=== PATIENT | female | born 1995 | race Caucasian/White ===

== ENCOUNTER 2016-07-12 22:26 | Emergency (ER) | payer OTHER ==
[~2016-07-12 22:26] MED LIST: MOTR200T44 PO; PRENTAB55 PO
[2016-07-13] MEDS ORDERED: traMADol 50 MG TAB As Ordered ONE (00:22)
[2016-07-13] MEDS ORDERED: metroNIDAZOLE (FLAGYL) 250 MG TAB As Ordered ONE (00:23)
[2016-07-13] MEDS ORDERED: BACTRIM 160MG/800MG DS TAB As Ordered ONE (00:23)
--- NOTE | 2016-07-13 00:33 | EDDOCDS ---
Physician Documentation [facility] Name: Mahsa Aldridge Age: 21 yrs Sex: Female : 1995 Arrival Date: 07/12/2016 Time: 22:26 Bed I2 / M2 Private MD: Kiera Ma M. Disposition: 07/13/16 00:22 Discharged to Home/Self Care. Impression: Unspecified open wound of left forearm - cat bite. - Condition is Stable. - Discharge Instructions: Animal Bite. - Prescriptions for Naprosyn 500 mg Oral Tablet - take 1 tablet by ORAL route 2 times per day take with food; 30 tablet. Metronidazole 500 mg Oral Tablet - take 1 tablet by ORAL route every 8 hours for 7 days; 21 tablet. Bactrim DS 800- 160 mg Oral Tablet - take 1 tablet by ORAL route every 12 hours for 7 days; 14 tablet. - Medication Reconciliation, Local Pharmacy Hours form. - Follow up: Emergency Department; When: As needed. Follow up: Kiera Ma; When: 2 - 3 days; Reason: Wound/Symptom Recheck, Recheck today's complaints, Worsening of conditions, Continuance of care. - Problem is new. - Symptoms are unchanged. Historical: - Allergies: Augmentin (Rash); - Home Meds: 1. thyroid medication has not been taking - PMHx: compression fracture T7; Hypothyroidism; vit d deficiency; - PSHx: none; - Immunization history:: Last tetanus immunization: unknown. - Family history: Not pertinent. - Social history: Smoking status: Patient states was never smoker of tobacco. No barriers to communication noted, The patient speaks fluent Norwegian. - : The pt / caregiver states he / she is not on anticoagulants. Home medication list is obtained from the patient. - Exposure Risk Screening:: None identified. 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 1 in. (154.94 cm) (R); Pain 9/10; 07/13 00:30 BP 149 / 71; Pulse 91; Resp 16; Temp 98.1; Pulse Ox 100% on R/A; ld5 07/12 22:28 Body Mass Index 38.36 (92.08 kg, 154.94 cm) rs6 MDM: 00:19 traMADol 50 mg PO once ordered. cc10 00:19 Trimethoprim-Sulfamethoxazole 160 mg-800 mg (DS) 1 tabs PO once ordered. cc10 00:19 metroNIDAZOLE 500 mg PO once ordered. cc10 00:31 Financial registration complete. [facility] Administered Medications: 00:29 Drug: traMADol 50 mg [tramadol 50 mg tablet (1 tabs)] Route: PO; ld5 00:30 Follow up: Response: Confirmed pt not driving. ld5 00:29 Drug: Trimethoprim-Sulfamethoxazole 1 tabs [sulfamethoxazole 800 mg-trimethoprim 160 mg ld5 tablet (1 tabs)] Route: PO; 00:29 Drug: metroNIDAZOLE 500 mg [metronidazole 250 mg tablet (2 tabs)] Route: PO; ld5 Signatures: Zaynab Jacinto RN RN rs3 Shruthi Blair RN RN ld5 Jl Toledo, PA-C PA-C cc10 Thalia Barraza [facility] MTDD
--- NOTE | 2016-07-13 00:33 | EDDOCDS ---
Nurse's Notes [facility] Name: Mahsa Aldridge Age: 21 yrs Sex: Female : 1995 Arrival Date: 07/12/2016 Time: 22:26 Bed I2 / M2 Private MD: Kiera Ma M. Diagnosis: Unspecified open wound of left forearm-cat bite Presentation: 07/12 22:31 Presenting complaint: Patient states: cat bite on L forearm. Adult Sepsis Screening: rs3 The patient does not have new or worsening altered mentation. Patient's respiratory rate is less than 22. Systolic blood pressure is greater than 100. Patient has a qSOFA score of 0- Negative Sepsis Screen. Suicide/Homicide risk assessment- the patient denies having any suicidal and/or homicidal ideations and does not present with any other emotional, behavioral or mental health complaints. Status: Patient is not a guest services attendant or dependent. Transition of care: patient was not received from another setting of care. 22:31 Acuity: YUMIKO Level 4 rs3 22:31 Method Of Arrival: Walkin/Carried/Asstd rs3 Triage Assessment: 22:33 Bite Description: Bite sustained to left arm by a cat, Animal Information: Vaccine rs3 status: is unknown. General: Appears in no apparent distress. Pain: Location: left arm. HIV screening NA for this visit Offered previously. REHAB TECH: 22:33 LMP 07/09/2016 rs3 Historical: - Allergies: Augmentin (Rash); - Home Meds: 1. thyroid medication has not been taking - PMHx: compression fracture T7; Hypothyroidism; vit d deficiency; - PSHx: none; - Immunization history:: Last tetanus immunization: unknown. - Family history: Not pertinent. - Social history: Smoking status: Patient states was never smoker of tobacco. No barriers to communication noted, The patient speaks fluent Persian. - : The pt / caregiver states he / she is not on anticoagulants. Home medication list is obtained from the patient. - Exposure Risk Screening:: None identified. Screenin/03 00:30 Screening information is obtained from the patient. Fall risk: No risks identified. ld5 Assistance ADL's: requires no assistance with activities of daily living. Abuse/DV Screen: The patient / caregiver reports he/she is: not in a situation that causes fear, pain or injury. Nutritional screening: No deficits noted. Advance Directives: There is no active DNR order. home support is adequate. Assessment: 00:30 General: Appears in no apparent distress, Behavior is cooperative. Pain: Location: ld5 dorsal aspect of left forearm. Neurological: Level of Consciousness is awake, alert. Respiratory: Airway is patent Respiratory effort is even, unlabored. Derm: Skin bite to left forearm. Injury Description: The patient reports to have been bitten by a cat on his/her dorsal aspect of left forearm. Vital Signs: 07/12 22:28 BP 154 / 79 RA Sitting (auto/lg); Pulse 96; Resp 16; Temp 98.2(O); Pulse Ox 99% on R/A; rs6 Weight 92.08 kg (R); Height 5 ft. 1 in. (154.94 cm) (R); Pain 9/10; 07/13 00:30 BP 149 / 71; Pulse 91; Resp 16; Temp 98.1; Pulse Ox 100% on R/A; ld5 07/12 22:28 Body Mass Index 38.36 (92.08 kg, 154.94 cm) rs6 Vitals: 07/12 22:28 Log In Time: July 12, 2016 at 22:28. rs6 ED Course: 22:28 Patient visited by Laureen Hayes PCA. rs6 22:28 Kiera Ma is Private Physician. rs6 22:28 Patient moved to Waiting rs6 22:29 Patient visited by Laureen Hayes PCA. rs6 22:30 Patient moved to Pre RCE rs6 22:32 Triage Initiated rs3 02 00:01 Patient moved to I2 / M2 slm 00:08 Jl Toledo PA-C is PHCP. cc10 00:08 Jean Ivy DO is Attending Physician. cc10 00:14 Patient visited by Jl Toledo PA-C. cc10 00:14 Patient visited by Jl Toledo PA-C. cc10 00:22 Kiera Ma is Referral Physician. cc10 00:30 The patient / caregiver is instructed regarding the plan of care and ED course. Patient ld5 has correct armband on for positive identification. 00:30 No IV's were initiated during this patient's visit. No procedures done that require ld5 assistance. 00:32 Patient visited by Shruthi Blair,RN. ld5 Administered Medications: 00:29 Drug: traMADol 50 mg [tramadol 50 mg tablet (1 tabs)] Route: PO; ld5 00:30 Follow up: Response: Confirmed pt not driving. ld5 00:29 Drug: Trimethoprim-Sulfamethoxazole 1 tabs [sulfamethoxazole 800 mg-trimethoprim 160 mg ld5 tablet (1 tabs)] Route: PO; 00:29 Drug: metroNIDAZOLE 500 mg [metronidazole 250 mg tablet (2 tabs)] Route: PO; ld5 Order Results: There are currently no results for this order. Outcome: 00:22 Discharge ordered by Provider. cc10 00:30 Discharge Assessment: Patient awake, alert and oriented x 3. No cognitive and/or ld5 functional deficits noted. Patient verbalized understanding of disposition instructions. patient administered narcotics - yes. Pt provided with safe discharge. The following High Risk Discharge criteria are identified: None. Discharged to home ambulatory, with significant other. Condition: stable. Discharge instructions given to patient, significant other, Instructed on discharge instructions, follow up and referral plans. medication usage, Demonstrated understanding of instructions, medications, Pt was receptive of discharge instructions/ teaching. Prescriptions given X 3. No special radiology studies were completed. Property :Personal belongings accompany Pt. 00:32 Patient left the ED. ld5 Signatures: Zaynab Jacinto,RN RN rs3 Shruthi Blair,RN RN ld5 Candy Zapata,SUSANNA ADDISONN Jl Joy PAMarvC PA-C cc10 Laureen Hayes, JORGE L RN SUPPORT SERVICES rs6 MTDD
--- NOTE | 2016-07-15 01:33 | EDDOCDS ---
Nurse's Notes [facility] Name: Mahsa Aldridge Age: 21 yrs Sex: Female : 1995 Arrival Date: 07/12/2016 Time: 22:26 Bed I2 / M2 Private MD: Kiera Ma M. Diagnosis: Unspecified open wound of left forearm-cat bite Presentation: 07/12 22:31 Presenting complaint: Patient states: cat bite on L forearm. Adult Sepsis Screening: rs3 The patient does not have new or worsening altered mentation. Patient's respiratory rate is less than 22. Systolic blood pressure is greater than 100. Patient has a qSOFA score of 0- Negative Sepsis Screen. Suicide/Homicide risk assessment- the patient denies having any suicidal and/or homicidal ideations and does not present with any other emotional, behavioral or mental health complaints. Status: Patient is not a director learning services or dependent. Transition of care: patient was not received from another setting of care. 22:31 Acuity: YUMIKO Level 4 rs3 22:31 Method Of Arrival: Walkin/Carried/Asstd rs3 Triage Assessment: 22:33 Bite Description: Bite sustained to left arm by a cat, Animal Information: Vaccine rs3 status: is unknown. General: Appears in no apparent distress. Pain: Location: left arm. HIV screening NA for this visit Offered previously. 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 thyroid medication has not been taking - PMHx: compression fracture T7; Hypothyroidism; vit d deficiency; - PSHx: none; - Immunization history:: Last tetanus immunization: unknown. - Family history: Not pertinent. - Social history: Smoking status: Patient states was never smoker of tobacco. No barriers to communication noted, The patient speaks fluent Yi. - : The pt / caregiver states he / she is not on anticoagulants. Home medication list is obtained from the patient. - Exposure Risk Screening:: None identified. Screenin/03 00:30 Screening information is obtained from the patient. Fall risk: No risks identified. ld5 Assistance ADL's: requires no assistance with activities of daily living. Abuse/DV Screen: The patient / caregiver reports he/she is: not in a situation that causes fear, pain or injury. Nutritional screening: No deficits noted. Advance Directives: There is no active DNR order. home support is adequate. Assessment: 00:30 General: Appears in no apparent distress, Behavior is cooperative. Pain: Location: ld5 dorsal aspect of left forearm. Neurological: Level of Consciousness is awake, alert. Respiratory: Airway is patent Respiratory effort is even, unlabored. Derm: Skin bite to left forearm. Injury Description: The patient reports to have been bitten by a cat on his/her dorsal aspect of left forearm. Vital Signs: 07/12 22:28 BP 154 / 79 RA Sitting (auto/lg); Pulse 96; Resp 16; Temp 98.2(O); Pulse Ox 99% on R/A; rs6 Weight 92.08 kg (R); Height 5 ft. 1 in. (154.94 cm) (R); Pain 9/10; 07/13 00:30 BP 149 / 71; Pulse 91; Resp 16; Temp 98.1; Pulse Ox 100% on R/A; ld5 07/12 22:28 Body Mass Index 38.36 (92.08 kg, 154.94 cm) rs6 Vitals: 07/12 22:28 Log In Time: July 12, 2016 at 22:28. rs6 ED Course: 22:28 Patient visited by Laureen Hayes PCA. rs6 22:28 Kiera Ma is Private Physician. rs6 22:28 Patient moved to Waiting rs6 22:29 Patient visited by Laureen Hayes PCA. rs6 22:30 Patient moved to Pre RCE rs6 22:32 Triage Initiated rs3 02 00:01 Patient moved to I2 / M2 slm 00:08 Jl Toledo PA-C is PHCP. cc10 00:08 Jean Ivy DO is Attending Physician. cc10 00:14 Patient visited by Jl Toledo PA-C. cc10 00:14 Patient visited by Jl Toledo PA-C. cc10 00:22 Kiera Ma is Referral Physician. cc10 00:30 The patient / caregiver is instructed regarding the plan of care and ED course. Patient ld5 has correct armband on for positive identification. 00:30 No IV's were initiated during this patient's visit. No procedures done that require ld5 assistance. 00:32 Patient visited by Shruthi Blair RN. ld5 01:37 [facility] Payment Agreement was scanned into [employer] and attached to record. [facility] 11:46 T-Sheet-- Draft Copy was scanned into [employer] and attached to record. gb Administered Medications: 00:29 Drug: traMADol 50 mg [tramadol 50 mg tablet (1 tabs)] Route: PO; ld5 00:30 Follow up: Response: Confirmed pt not driving. ld5 00:29 Drug: Trimethoprim-Sulfamethoxazole 1 tabs [sulfamethoxazole 800 mg-trimethoprim 160 mg ld5 tablet (1 tabs)] Route: PO; 00:29 Drug: metroNIDAZOLE 500 mg [metronidazole 250 mg tablet (2 tabs)] Route: PO; ld5 Order Results: There are currently no results for this order. Outcome: 00:22 Discharge ordered by Provider. cc10 00:30 Discharge Assessment: Patient awake, alert and oriented x 3. No cognitive and/or ld5 functional deficits noted. Patient verbalized understanding of disposition instructions. patient administered narcotics - yes. Pt provided with safe discharge. The following High Risk Discharge criteria are identified: None. Discharged to home ambulatory, with significant other. Condition: stable. Discharge instructions given to patient, significant other, Instructed on discharge instructions, follow up and referral plans. medication usage, Demonstrated understanding of instructions, medications, Pt was receptive of discharge instructions/ teaching. Prescriptions given X 3. No special radiology studies were completed. Property :Personal belongings accompany Pt. 00:32 Patient left the ED. ld5 Signatures: Jenna Wall, Reg Reg Zaynab Jacinto RN RN rs3 Shruthi Blair,RN RN ld5 Candy Zapata LPN LPN slm [place], Colin, PA-C PA-C cc10 Thalia Barraza Rebecca, PCA [facility] rs6 Chart Complete MTDD
--- NOTE | 2016-07-15 01:33 | EDDOCDS ---
Physician Documentation [facility] Name: Mahsa Aldridge Age: 21 yrs Sex: Female : 1995 Arrival Date: 07/12/2016 Time: 22:26 Bed I2 / M2 Private MD: Kiera Ma M. Disposition: 07/13/16 00:22 Discharged to Home/Self Care. Impression: Unspecified open wound of left forearm - cat bite. - Condition is Stable. - Discharge Instructions: Animal Bite. - Prescriptions for Naprosyn 500 mg Oral Tablet - take 1 tablet by ORAL route 2 times per day take with food; 30 tablet. Metronidazole 500 mg Oral Tablet - take 1 tablet by ORAL route every 8 hours for 7 days; 21 tablet. Bactrim DS 800- 160 mg Oral Tablet - take 1 tablet by ORAL route every 12 hours for 7 days; 14 tablet. - Medication Reconciliation, Local Pharmacy Hours form. - Follow up: Emergency Department; When: As needed. Follow up: Kiera Ma; When: 2 - 3 days; Reason: Wound/Symptom Recheck, Recheck today's complaints, Worsening of conditions, Continuance of care. - Problem is new. - Symptoms are unchanged. Historical: - Allergies: Augmentin (Rash); - Home Meds: 1. thyroid medication has not been taking - PMHx: compression fracture T7; Hypothyroidism; vit d deficiency; - PSHx: none; - Immunization history:: Last tetanus immunization: unknown. - Family history: Not pertinent. - Social history: Smoking status: Patient states was never smoker of tobacco. No barriers to communication noted, The patient speaks fluent Yemeni. - : The pt / caregiver states he / she is not on anticoagulants. Home medication list is obtained from the patient. - Exposure Risk Screening:: None identified. 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 1 in. (154.94 cm) (R); Pain 9/10; 07/13 00:30 BP 149 / 71; Pulse 91; Resp 16; Temp 98.1; Pulse Ox 100% on R/A; ld5 07/12 22:28 Body Mass Index 38.36 (92.08 kg, 154.94 cm) rs6 MDM: 00:19 traMADol 50 mg PO once ordered. cc10 00:19 Trimethoprim-Sulfamethoxazole 160 mg-800 mg (DS) 1 tabs PO once ordered. cc10 00:19 metroNIDAZOLE 500 mg PO once ordered. cc10 00:31 Financial registration complete. [facility] 01:37 [facility] Payment Agreement was scanned into [employer] and attached to record. [facility] 11:46 T-Sheet-- Draft Copy was scanned into [employer] and attached to record. gb Administered Medications: 00:29 Drug: traMADol 50 mg [tramadol 50 mg tablet (1 tabs)] Route: PO; ld5 00:30 Follow up: Response: Confirmed pt not driving. ld5 00:29 Drug: Trimethoprim-Sulfamethoxazole 1 tabs [sulfamethoxazole 800 mg-trimethoprim 160 mg ld5 tablet (1 tabs)] Route: PO; 00:29 Drug: metroNIDAZOLE 500 mg [metronidazole 250 mg tablet (2 tabs)] Route: PO; ld5 Signatures: Jenna Wall, Reg Reg gb Zaynab JacintoRN RN rs3 Shruthi Blair RN RN ld5 Jl Toledo PA-C PA-C cc10 Thalia Barraza [facility] The chart was reviewed and I authenticate all verbal orders and agree with the evaluation and treatment provided.Attachments: 01:37 [facility] Payment Agreement [facility] 11:46 T-Sheet-- Draft Copy gb Chart Complete MTDD
--- NOTE | 2016-07-15 01:33 | EDDOCDS ---
Physician Documentation [facility] Name: Mahsa Aldridge Age: 21 yrs Sex: Female : 1995 Arrival Date: 07/12/2016 Time: 22:26 Bed I2 / M2 Private MD: Kiera Ma M. Disposition: 07/13/16 00:22 Discharged to Home/Self Care. Impression: Unspecified open wound of left forearm - cat bite. - Condition is Stable. - Discharge Instructions: Animal Bite. - Prescriptions for Naprosyn 500 mg Oral Tablet - take 1 tablet by ORAL route 2 times per day take with food; 30 tablet. Metronidazole 500 mg Oral Tablet - take 1 tablet by ORAL route every 8 hours for 7 days; 21 tablet. Bactrim DS 800- 160 mg Oral Tablet - take 1 tablet by ORAL route every 12 hours for 7 days; 14 tablet. - Medication Reconciliation, Local Pharmacy Hours form. - Follow up: Emergency Department; When: As needed. Follow up: Kiera Ma; When: 2 - 3 days; Reason: Wound/Symptom Recheck, Recheck today's complaints, Worsening of conditions, Continuance of care. - Problem is new. - Symptoms are unchanged. Historical: - Allergies: Augmentin (Rash); - Home Meds: 1. thyroid medication has not been taking - PMHx: compression fracture T7; Hypothyroidism; vit d deficiency; - PSHx: none; - Immunization history:: Last tetanus immunization: unknown. - Family history: Not pertinent. - Social history: Smoking status: Patient states was never smoker of tobacco. No barriers to communication noted, The patient speaks fluent Irish. - : The pt / caregiver states he / she is not on anticoagulants. Home medication list is obtained from the patient. - Exposure Risk Screening:: None identified. 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 1 in. (154.94 cm) (R); Pain 9/10; 07/13 00:30 BP 149 / 71; Pulse 91; Resp 16; Temp 98.1; Pulse Ox 100% on R/A; ld5 07/12 22:28 Body Mass Index 38.36 (92.08 kg, 154.94 cm) rs6 MDM: 00:19 traMADol 50 mg PO once ordered. cc10 00:19 Trimethoprim-Sulfamethoxazole 160 mg-800 mg (DS) 1 tabs PO once ordered. cc10 00:19 metroNIDAZOLE 500 mg PO once ordered. cc10 00:31 Financial registration complete. [facility] 01:37 [facility] Payment Agreement was scanned into [employer] and attached to record. [facility] 11:46 T-Sheet-- Draft Copy was scanned into [employer] and attached to record. gb Administered Medications: 00:29 Drug: traMADol 50 mg [tramadol 50 mg tablet (1 tabs)] Route: PO; ld5 00:30 Follow up: Response: Confirmed pt not driving. ld5 00:29 Drug: Trimethoprim-Sulfamethoxazole 1 tabs [sulfamethoxazole 800 mg-trimethoprim 160 mg ld5 tablet (1 tabs)] Route: PO; 00:29 Drug: metroNIDAZOLE 500 mg [metronidazole 250 mg tablet (2 tabs)] Route: PO; ld5 Signatures: Jenna Wall, Reg Reg gb Zaynab JacintoRN RN rs3 Shruthi Blair RN RN ld5 Jl Toledo PA-C PA-C cc10 Thalia Barraza [facility] The chart was reviewed and I authenticate all verbal orders and agree with the evaluation and treatment provided.Attachments: 01:37 [facility] Payment Agreement [facility] 11:46 T-Sheet-- Draft Copy gb Chart Complete MTDD
== END 2016-07-13 00:32 | disposition home or self-care (01) ==
LOC: M ED 22:26
DX: S51.802A Unspecified open wound of left forearm, initial encounter (principal); W55.01XA Bitten by cat, initial encounter; Y92.098 Other place in other non-institutional residence as the place of occurrence of the external cause; Y93.K9 Activity, other involving animal care; Y99.8 Other external cause status; E03.9 Hypothyroidism, unspecified; E55.9 Vitamin D deficiency, unspecified; Z88.0 Allergy status to penicillin; Z88.1 Allergy status to other antibiotic agents

== ENCOUNTER 2016-09-24 11:26 | Emergency (ER) | payer OTHER ==
[~2016-09-24] VITALS: Ht 154.9 cm; Wt 93.0 kg
[2016-09-24 11:27] VITALS: BP 111/75
[2016-09-24] MEDS ORDERED: IBUP600T26 PO (12:31)
== END 2016-09-24 13:08 | disposition home or self-care (01) ==
LOC: M ED 12:42
DX: J02.9 Acute pharyngitis, unspecified (principal); J04.0 Acute laryngitis

== ENCOUNTER → 2016-10-01 | Outpatient (REF) | payer OTHER ==
[~2016-10-01] MED LIST changes: +IBUP600T26 PO
[2016-10-01 12:42] LABS: FREE T4 0.88 NG/DL (0.78-1.33)
== END ==
LOC: M SFHCLERA 08:18
PROVIDERS: ATTEND Family Medicine
DX: E03.9 Hypothyroidism, unspecified (principal)

== ENCOUNTER → 2016-11-19 | Outpatient (REF) | payer OTHER ==
[2016-11-19 20:26] LABS: FREE T4 0.95 NG/DL (0.78-1.33)
== END ==
LOC: M SFHCLERA 11:01
PROVIDERS: ATTEND Family Medicine
DX: E03.9 Hypothyroidism, unspecified (principal)

== ENCOUNTER → 2016-12-06 | Outpatient (REF) | payer OTHER ==
[~2016-12-06] MED LIST changes: +IBUP-1022 PO; -IBUP600T26 PO
[2016-12-06 12:02] LABS: CONTROL LINE HCG INT CTR LINE PRESENT
== END ==
LOC: M SFHCLERA 09:12
PROVIDERS: ATTEND Family Medicine
DX: N92.6 Irregular menstruation, unspecified (principal)

== ENCOUNTER → 2016-12-07 | Outpatient (CLI) | payer OTHER ==
--- NOTE | 2016-12-07 13:28 | REP ---
Clinical: Sprain . Technique: AP, lateral, bilateral oblique views right ankle . Findings: No acute fracture or dislocation. Skeletal structures and joint spaces are intact and normal. Ankle mortise appears stable. No subcutaneous emphysema or radiodense foreign body. Impression: Normal right ankle radiograph series. Signed by Tim Dunaway MD 12/07/2016 01:19 P
== END ==
LOC: M LRY 12:31
PROVIDERS: ATTEND Family Medicine
DX: S93.411A Sprain of calcaneofibular ligament of right ankle, initial encounter (principal); X58.XXXA Exposure to other specified factors, initial encounter; Y93.9 Activity, unspecified; Y92.9 Unspecified place or not applicable; Y99.8 Other external cause status

== ENCOUNTER → 2017-01-04 | Outpatient (CLI) | payer OTHER ==
--- NOTE | 2017-01-04 13:59 | REP ---
Right knee five views: There are no comparisons. Mineralization and joint spaces are normal. There is questionably a suprapatellar effusion. This should be correlated with clinical palpation. There are no calcifications or foreign bodies. No fracture or dislocation. Impression: Questionable suprapatellar effusion. Correlate with clinical palpation. Otherwise, negative right knee. Signed by Frantz Lizama MD 01/04/2017 01:50 P
== END ==
LOC: M LRY 12:10
PROVIDERS: ATTEND Family Medicine
DX: M25.561 Pain in right knee (principal)

== ENCOUNTER → 2017-03-28 | Outpatient (REF) | payer OTHER ==
[2017-03-28 18:31] LABS: FREE T4 0.91 NG/DL (0.78-1.33)
== END ==
LOC: M SFHCLERA 13:34
PROVIDERS: ATTEND Family Medicine
DX: E03.9 Hypothyroidism, unspecified (principal)

== ENCOUNTER → 2018-01-30 | Outpatient (REF) | payer OTHER ==
[2018-01-30 16:37] LABS: FREE T4 0.56 NG/DL (0.76-1.46)
[2018-01-30 16:41] LABS: ESTIMATED AVERAGE GLUCOSE 103 MG/DL (60-110); HEMOGLOBIN A1c 5.2 %
== END ==
LOC: M SFHCLERA 11:14
DX: E03.9 Hypothyroidism, unspecified (principal); E66.01 Morbid (severe) obesity due to excess calories

== ENCOUNTER → 2018-01-30 | Outpatient (CLI) | payer OTHER | LOC: M LRY 11:27 | DX: M25.551 Pain in right hip (principal) | CPT/HCPCS: 84443 ==

== ENCOUNTER → 2018-03-17 | Outpatient (CLI) | payer OTHER | LOC: M LRY 14:48 | DX: M54.6 Pain in thoracic spine (principal); E03.9 Hypothyroidism, unspecified; Z12.4 Encounter for screening for malignant neoplasm of cervix | CPT/HCPCS: 84443 ==

== ENCOUNTER 2018-03-24 16:37 | Outpatient (RCR) | payer OTHER | END 2018-04-09 | LOC: M PT 03-26 16:38 | DX: Z51.89 Encounter for other specified aftercare (principal); M25.551 Pain in right hip; M25.561 Pain in right knee | CPT/HCPCS: 97010 ==

== ENCOUNTER 2018-04-18 13:42 | Emergency (ER) | payer OTHER ==
[2018-04-18 14:29] LABS: BASO % 0.3 % (0.0-1.0); EOS # 0.1 10^3/uL (0.0-0.50); HEMOGLOBIN 13.5 g/dl (12.0-15.5); IMMATURE GRANULOCYTE % 0.5 % (0-3.0); LYMPH # 2.5 10^3/uL (1.5-6.5); LYMPH % 31.4 % (24.0-44.0); MEAN CORPUSCULAR HEMOGLOBIN 29.3 pg (27.0-33.0); MEAN CORPUSCULAR HGB CONC 32.9 g/dl (32.0-36.5); MEAN CORPUSCULAR VOLUME 89.1 fl (80.0-96.0); MONO # 0.7 10^3/uL (0.0-0.8); NEUTROPHILS # 4.6 10^3/uL (1.8-7.7); NEUTROPHILS % 57.8 % (36.0-66.0); PLATELET COUNT, AUTOMATED 266 10^3/uL (150-450); RED CELL DISTRIBUTION WIDTH 12.1 % (11.5-14.5); WHITE BLOOD COUNT 7.9 10^3/uL (4.0-10.0)
[2018-04-18 15:04] LABS: HCG, SERUM QUANTITATIVE 9150 MIU/ML
== END 2018-04-18 15:46 | disposition home or self-care (01) ==
LOC: M ED 13:42
DX: O20.0 Threatened abortion (principal); Z3A.08 8 weeks gestation of pregnancy; O99.281 Endocrine, nutritional and metabolic diseases complicating pregnancy, first trimester; E03.9 Hypothyroidism, unspecified; Z88.0 Allergy status to penicillin
CPT/HCPCS: 76801

== ENCOUNTER → 2018-04-20 | Outpatient (CLI) | payer OTHER ==
[2018-04-20 18:54] LABS: HCG, SERUM QUANTITATIVE 13657 MIU/ML
== END ==
LOC: M LAB 16:24
DX: O99.89 Other specified diseases and conditions complicating pregnancy, childbirth and the puerperium (principal); N93.9 Abnormal uterine and vaginal bleeding, unspecified; Z3A.00 Weeks of gestation of pregnancy not specified
CPT/HCPCS: 84702

== ENCOUNTER → 2018-04-28 | Outpatient (CLI) | payer OTHER ==
[2018-04-28 13:21] LABS: BASO % 0.2 % (0.0-1.0); EOS # 0.1 10^3/uL (0.0-0.50); EOS % 0.6 % (0.0-3.0); HEMATOCRIT 40.5 % (36.0-47.0); HEMOGLOBIN 13.3 g/dl (12.0-15.5); IMMATURE GRANULOCYTE % 0.6 % (0-3.0); LYMPH # 2.3 10^3/uL (1.5-6.5); LYMPH % 27.2 % (24.0-44.0); MEAN CORPUSCULAR HEMOGLOBIN 29.2 pg (27.0-33.0); MEAN CORPUSCULAR HGB CONC 32.8 g/dl (32.0-36.5); MONO # 0.7 10^3/uL (0.0-0.8); MONO % 8.6 % (0.0-5.0); NEUTROPHILS # 5.3 10^3/uL (1.8-7.7); NEUTROPHILS % 62.8 % (36.0-66.0); PLATELET COUNT, AUTOMATED 261 10^3/uL (150-450); RED BLOOD COUNT 4.55 10^6/uL (4.00-5.40); WHITE BLOOD COUNT 8.5 10^3/uL (4.0-10.0)
[2018-04-28 14:15] LABS: HBsAg Prenatal NEGATIVE (NEGATIVE); HIV 1&2 SCREEN CENTAUR NEGATIVE (NEGATIVE); RUBELLA IgG QUALITATIVE IMMUNE (IMMUNE)
[2018-04-28 14:15] LABS: HEPATITIS C VIRUS ABY INDEX 0.1 INDEX (<0.8)
[2018-04-28 14:48] LABS: CHLAMYDIA DNA AMPLIFICATION NEGATIVE (NEGATIVE); GC DNA AMPLIFICATION NEGATIVE (NEGATIVE)
== END ==
LOC: M SMT 08:44
DX: Z34.81 Encounter for supervision of other normal pregnancy, first trimester (principal); Z3A.01 Less than 8 weeks gestation of pregnancy
CPT/HCPCS: 86762

== ENCOUNTER → 2018-05-28 | Outpatient (CLI) | payer OTHER ==
[2018-05-28 14:29] LABS: THYROID STIMULATING HORMONE 1.07 uIU/ML (0.358-3.740)
[2018-05-29 15:56] LABS: FREE T4 1.09 NG/DL (0.76-1.46)
== END ==
LOC: M SMT 09:50
PROVIDERS: ATTEND Advanced Practice Midwife
DX: O99.211 Obesity complicating pregnancy, first trimester (principal); E03.9 Hypothyroidism, unspecified; Z3A.00 Weeks of gestation of pregnancy not specified

== ENCOUNTER → 2018-07-29 | Outpatient (CLI) | payer OTHER ==
--- NOTE | 2018-07-30 06:02 | REP ---
Clinical: Anatomical evaluation. Comparison: 04/18/2018 . Findings: Examination demonstrates a single live intrauterine in variable presentation. motion is identified by technologist. Placenta is noted anterior and grade grade 1 without evidence for placenta previa or abruption. Amniotic fluid volume is normal. Cervix measures 4.1 cm in length and appears closed. No evidence for nuchal cord. Gestational age by LMP 23 weeks 0 days with SHAHAB 11/25/2018 . Gestational age by current measurements 21 weeks 0 days with SHAHAB 12/09/2018 . FHR equals 145 beats per minute. BPD 5.1 cm 21 weeks 3 days HC 18.4 cm 20 weeks 5 days AC 15.0 cm 20 weeks 2 days FL 3.6 cm 21 weeks 3 days HL 3.2 cm 20 weeks 6 days HC/AC ratio 1.23 Estimated weight 378 grams ( 42nd percentile). Anatomical assessment demonstrates normal structures including cranium, choroid plexus, cavum, cerebellum/posterior fossa, facial features, lungs, ventricular outflow tracts, diaphragm, stomach, cord insertion/three-vessel cord, kidneys/bladder, spine, and extremities. Impression: Single live intrauterine in variable presentation demonstrating appropriate interval growth. Limited evaluation of the four-chamber heart noted. Remainder of the anatomical assessment is complete and normal. Electronically Signed by Tim Dunaway MD 07/30/2018 05:53 A
== END ==
LOC: M RAD 10:24
PROVIDERS: ATTEND Advanced Practice Midwife
DX: Z34.82 Encounter for supervision of other normal pregnancy, second trimester (principal); Z36.89 Encounter for other specified antenatal screening; Z3A.23 23 weeks gestation of pregnancy

== ENCOUNTER → 2018-08-20 | Outpatient (REF) | payer OTHER | LOC: M LAB REF 12:46 | PROVIDERS: ATTEND Advanced Practice Midwife | DX: R30.0 Dysuria (principal); O26.892 Other specified pregnancy related conditions, second trimester ==

== ENCOUNTER 2018-08-31 15:18 | Outpatient (CLI) | payer OTHER ==
[~2018-08-31] VITALS: Ht 154.9 cm; Wt 98.5 kg
== END 2018-08-31 16:15 | disposition home or self-care (01) ==
LOC: M LDO 15:18
PROVIDERS: ATTEND Specialist
DX: O26.892 Other specified pregnancy related conditions, second trimester (principal); R10.30 Lower abdominal pain, unspecified; Z3A.25 25 weeks gestation of pregnancy

== ENCOUNTER 2018-09-04 03:30 | Emergency (ER) | payer OTHER ==
[~2018-09-04] VITALS: Ht 154.9 cm; Wt 100.0 kg
[2018-09-04 03:31] VITALS: BP 114/56
[2018-09-04 04:36] LABS: INFLUENZA A AMPLIFICATION POSITIVE (NEGATIVE); INFLUENZA B AMPLIFICATION NEGATIVE (NEGATIVE)
[2018-09-04] MEDS ORDERED: OSEL75CA PO (05:58)
[2018-09-04] MEDS ORDERED: OSELTAMIVIR PHOSPHATE 75 MG CAP (TAMIFLU) PO ONE (06:00)
== END 2018-09-04 06:39 | disposition home or self-care (01) ==
LOC: M ED 03:30
DX: O99.89 Other specified diseases and conditions complicating pregnancy, childbirth and the puerperium (principal); J09.X2 Influenza due to identified novel influenza A virus with other respiratory manifestations; Z88.1 Allergy status to other antibiotic agents; Z88.8 Allergy status to other drugs, medicaments and biological substances; Z91.030 Bee allergy status

== ENCOUNTER 2018-09-07 10:14 | Emergency (ER) | payer OTHER ==
[~2018-09-07] VITALS: Ht 154.9 cm; Wt 100.0 kg
[~2018-09-07 10:14] MED LIST changes: +OSEL75CA PO
[2018-09-07 10:15] VITALS: BP 110/59
[2018-09-07] MEDS ORDERED: ZOFR4TAB16 PO (10:50)
== END 2018-09-07 11:02 | disposition home or self-care (01) ==
LOC: M ED 10:14
DX: J09.X2 Influenza due to identified novel influenza A virus with other respiratory manifestations (principal); R11.10 Vomiting, unspecified; Z88.0 Allergy status to penicillin; Z91.030 Bee allergy status; Z88.8 Allergy status to other drugs, medicaments and biological substances

== ENCOUNTER → 2018-09-17 | Outpatient (CLI) | payer OTHER ==
[~2018-09-17] MED LIST changes: +ZOFR4TAB16 PO
--- NOTE | 2018-09-18 08:47 | REP ---
Clinical: Anatomical evaluation. Comparison: 07/29/2018 . Findings: Examination demonstrates a single live intrauterine in cephalic presentation. motion is identified by technologist. Placenta is noted anterior and grade grade 1 without evidence for placenta previa or abruption. Amniotic fluid volume is normal. Cervix measures 4.9 cm in length and appears closed. No evidence for nuchal cord. Gestational age by LMP 30 weeks 1 day with SHAHAB 11/25/2018 . Gestational age by current measurements 27 weeks 5 days with SHAHAB 12/12/2018 . FHR equals 133 beats per minute. Estimated weight 1065 grams ( 26th percentile based on age by first ultrasound at 28 weeks 1 day ). Anatomical assessment demonstrates normal structures including cranium, choroid plexus, cavum, cerebellum/posterior fossa, lungs, four-chamber heart/ventricular outflow tracts, diaphragm, stomach, cord insertion/three-vessel cord, kidneys/bladder, spine, and extremities. Impression: 1. Single live intrauterine in cephalic presentation demonstrating appropriate interval growth compared to first ultrasound. 2. In conjunction with prior examination anatomical assessment is complete and normal. Electronically Signed by Tim Dunaway MD 09/18/2018 08:37 A
== END ==
LOC: M RAD 11:28
PROVIDERS: ATTEND Advanced Practice Midwife
DX: O26.892 Other specified pregnancy related conditions, second trimester (principal); R10.2 Pelvic and perineal pain; Z3A.30 30 weeks gestation of pregnancy

== ENCOUNTER → 2018-09-17 | Outpatient (CLI) | payer OTHER ==
[2018-09-17 13:30] LABS: HEMATOCRIT 34.2 % (36.0-47.0); MEAN CORPUSCULAR HEMOGLOBIN 29.4 pg (27.0-33.0); MEAN CORPUSCULAR HGB CONC 32.2 g/dl (32.0-36.5); MEAN CORPUSCULAR VOLUME 91.4 fl (80.0-96.0); PLATELET COUNT, AUTOMATED 247 10^3/uL (150-450); RED BLOOD COUNT 3.74 10^6/uL (4.00-5.40); WHITE BLOOD COUNT 10.5 10^3/uL (4.0-10.0)
[2018-09-17 13:50] LABS: FREE T4 0.99 NG/DL (0.76-1.46); THYROID STIMULATING HORMONE 0.884 uIU/ML (0.358-3.740)
== END ==
LOC: M SMT 10:05
PROVIDERS: ATTEND Advanced Practice Midwife
DX: O26.892 Other specified pregnancy related conditions, second trimester (principal); O99.282 Endocrine, nutritional and metabolic diseases complicating pregnancy, second trimester; Z3A.00 Weeks of gestation of pregnancy not specified

== ENCOUNTER → 2018-10-09 | Outpatient (CLI) | payer OTHER, SELFPAY ==
--- NOTE | 2018-10-10 03:19 | REP ---
Clinical: well-being. Comparison: 09/17/2018 . Findings: Examination demonstrates a single live advanced intrauterine in cephalic presentation. motion is identified by technologist. Placenta is noted anterior and grade II without evidence for placenta previa or abruption. Amniotic fluid volume is normal. Cervix measures 3.7 cm in length and appears closed. No evidence for nuchal cord. Gestational age by LMP 33 weeks 2 days with SHAHAB 11/25/2018 . Gestational age by current measurements 31 weeks 2 days with SHAHAB 12/09/2018 . FHR equals 136 beats per minute. Biophysical profile score equals 8/8 Amniotic fluid index: 11.2 cm (8.2 - 24.6) Umbilical cord SD ratio: 3.14 (2.00 - 3.00). Impression: 1. Single live advanced gestation in cephalic presentation without obvious abnormality. 2. Biophysical profile score equals 8/8. Amniotic fluid index normal. 3. Minimally elevated umbilical cord SD ratio. Electronically Signed by Tim Dunaway MD 10/10/2018 03:11 A
== END ==
LOC: M RAD 08:02
PROVIDERS: ATTEND Advanced Practice Midwife
DX: O36.8130 Decreased fetal movements, third trimester, not applicable or unspecified (principal); Z3A.31 31 weeks gestation of pregnancy

== ENCOUNTER 2018-12-02 00:06 | Outpatient (CLI) | payer OTHER ==
[~2018-12-02] VITALS: Ht 154.9 cm; Wt 97.1 kg
[2018-12-02 00:24] VITALS: BP 107/65
[2018-12-02 01:40] LABS: APPEARANCE, URINE CLOUDY (CLEAR); BACTERIA, URINE AUTO NEGATIVE (NEGATIVE); BILIRUBIN, URINE AUTO 1+ (NEGATIVE); BLOOD, URINE BLOOD NEGATIVE (NEGATIVE); COLOR, URINE AMBER (YELLOW); GLUCOSE, URINE (UA) AUTO NEGATIVE (NEGATIVE); KETONE, URINE AUTO TRACE mg/dL (NEGATIVE); LEUKOCYTE ESTERASE, URINE AUTO 2+ (NEGATIVE); MUCUS, URINE LARGE (NEGATIVE); NITRITE, URINE AUTO NEGATIVE (NEGATIVE); PROTEIN, URINE AUTO 1+ mg/dL (NEGATIVE); RBC, URINE AUTO 2 /HPF (0-3); SPECIFIC GRAVITY URINE AUTO 1.033 (1.002-1.035); SQUAMOUS EPITHELIAL CELL UR AU 21 /HPF (0-6); TRANSITIONAL EPITHELIAL AUTO 1 /HPF; WBC, URINE AUTO 15 /HPF (0-3)
--- NOTE | 2018-12-02 02:27 | IPNPDOC ---
Text Note Date of Service The patient was seen on 12/02/18. NOTE Subjective: Patient is a 23-year-old female who is a at 38.2 weeks gestation with an SHAHAB of 12/14/18. She initiated care in her first trimester with [facility]. Her has been uncomplicated. she presents to [facility] with complaints of pelvic pain, specifically with increased pressure and pain around her clitoris. She reports the last time she had intercourse was 1 week ago. She denies having contractions, leaking fluid, having vaginal bleeding. She denies vaginal odor or vaginal itching. She reports active movement. She was given PO fluids and an ice diaper to help with pain. She reports the ice diaper has helped her pain the most. Objective: VS and labs: see below. FHR: 130, moderate variability, positive accelerations, no decelerations. Contractions: occasional. No vaginal swelling or irritation noted. Wet prep done and is negative for yeast, trichomonas, and bacteria. SVE: 50/-3, posterior, soft, no show. UA obtained. Assessment: IUP at 38.2 weeks gestation, dehydration, perineal pain. Plan: Patient discharged to home. She was encouraged to increase her fluids as she is dehydrated and likely this may be the cause of her pain surrounding her clitoris. Reviewed comfort measures with patient. She has an appointment 12/03/18 and is to follow-up with that appointment. Reviewed access to care, kick count, labor signs, and danger sings to report. VS,Fishbone, I+O VS, Fishbone, I+O Vital Signs Date Time Temp Pulse Resp B/P (MAP) Pulse Ox O2 Delivery O2 Flow Rate FiO2 12/02/18 00:24 98.2 100 107/65 (79) Item Value Date Time Urine Color DANAE 12/02/18 0125 Urine Appearance CLOUDY H 12/02/18 012 Urine pH 5.0 UNITS 12/02/18124 Urine Specific Golden 1.033 12/02/18 012 Urine Protein 1+ mg/dL H 12/02/18 012 Urine Glucose (UA) NEGATIVE mg/dL 12/02/18 012 Urine Ketones TRACE mg/dL H 12/02/18 012 Urine Blood NEGATIVE 12/02/18 012 Urine Nitrite NEGATIVE 12/02/18124 Urine Bilirubin 1+ H 12/02/18124 Urine Urobilinogen 4.0 mg/dL H 12/02/18124 Urine Leukocyte Esterase 2+ H 12/02/18124 Urine WBC (Auto) 15 /HPF H 12/02/18124 Urine RBC (Auto) 2 /HPF 12/02/18124 Urine Hyaline Casts (Auto) 0 /LPF 12/02/18124 Urine Bacteria (Auto) NEGATIVE 12/02/18124 Urine Squamous Epithelial Cells 21 /HPF 12/02/18124 Urine Transitional Epithelial Cells 1 /HPF 12/02/18124 Urine Mucus (Auto) LARGE 12/02/18124 DIONI LAUREN CNM Dec 02, 2018 02:27
== END 2018-12-02 02:16 | disposition home or self-care (01) ==
LOC: M LDO 00:06
PROVIDERS: ATTEND Advanced Practice Midwife
DX: O26.893 Other specified pregnancy related conditions, third trimester (principal); R10.2 Pelvic and perineal pain; O99.283 Endocrine, nutritional and metabolic diseases complicating pregnancy, third trimester; E86.0 Dehydration; Z3A.38 38 weeks gestation of pregnancy

== ENCOUNTER 2018-12-09 11:06 | Inpatient (IN) | payer OTHER ==
[~2018-12-09] VITALS: Ht 154.9 cm; Wt 97.0 kg
[2018-12-09] VITALS (15 sets, daily range): BP systolic 92–150; BP diastolic 44–86
[2018-12-09] MEDS ORDERED: OXYTOCIN 30 UNITS IN 0.9% NaCl 500ML IV BAG (J2590) As Ordered ONE (12:29)
[2018-12-09 12:31] LABS: HEMATOCRIT 33.4 % (36.0-47.0); HEMOGLOBIN 10.9 g/dl (12.0-15.5); MEAN CORPUSCULAR HEMOGLOBIN 27.7 pg (27.0-33.0); MEAN CORPUSCULAR HGB CONC 32.6 g/dl (32.0-36.5); PLATELET COUNT, AUTOMATED 271 10^3/uL (150-450); RED BLOOD COUNT 3.93 10^6/uL (4.00-5.40); WHITE BLOOD COUNT 9.5 10^3/uL (4.0-10.0)
[2018-12-09] MEDS: LR 1,000 ML IV SCH ×2 (12:41→20:43)
[2018-12-09] MEDS ORDERED: OXYTOCIN DRIP 30 UNITS in APPROPRIATE DILUENT 1 EA IV SCH (12:45)
--- NOTE | 2018-12-09 14:02 | HPE ---
DATE OF ADMISSION: 12/09/2018 HISTORY OF PRESENT ILLNESS: The patient is a 23-year-old female who is a 2, para 1-0-0-1 at 39 weeks and 2 days' gestation with an expected date of delivery (SHAHAB) of 12/14/2018 based off of her first-trimester ultrasound. The patient initiated care in her first trimester with [facility]. Her has been uncomplicated. The patient presents to labor and delivery for an elective induction of labor. The patient reports irregular contractions and active movement. She denies vaginal bleeding of leaking of fluid. PAST MEDICAL HISTORY: Mononucleosis and chicken pox as a child. Anxiety and depression as an adult and not being treated with anything. She also reports a history of hypothyroidism, although her levels have been normal during , and she has not been on medication. SURGICAL HISTORY: No past surgical history. FAMILY HISTORY: Diabetes, heart disease, hypertension, thyroid disease, and kidney disease, and aneurysm. SOCIAL HISTORY: She is single and with the father of the baby. She denies ever being a smoker. She denies use of alcohol. She denies use of illicit drugs. She reports never having any sexually transmitted infections. She denies history of physical abuse. PAST MEDICAL PREGNANCIES: In December of 2013 at 41 weeks and 2 days, she had a vaginal delivery of a living female weighing 8 pounds 15 ounces with no complications. LABORATORIES: Blood type is O positive. Antibody screen is negative. Her hemoglobin and hematocrit in her first trimester was 13.3 and 40.5 with platelets of 261. She is rubella immune. [facility] ([facility]) is nonreactive. Urine has no growth. Hepatitis B surface antigen is negative. HIV is negative. Hepatitis C is nonreactive. Gonorrhea and chlamydia are both negative. Her Panorama noninvasive screening test (NIPT) is low risk with a female. Her 1-hour glucose tolerance test was 102 with hemoglobin and hematocrit in her third trimester of 11 and 34.2 and platelets are 247, and she is positive for group B streptococcus (GBS). PHYSICAL ASSESSMENT: GENERAL: Alert and oriented times three. RESPIRATORY: Regular rate with no use of accessory muscles. ABDOMEN: Gravid and nontender to touch. Cephalic presentation noted via Gianluca maneuver and sterile vaginal examination (SVE). LOWER EXTREMITIES: Generalized edema with no pitting edema. No clonus. HEART RATE: 130 beats per minute, moderate variability, positive accelerations, no decelerations. Contractions are irregular. SVE: 2/75/-3, soft, midposition, no show. VITAL SIGNS: Temperature is 98.2, blood pressure is 98/55, heart rate is 92, respiratory rate is 18. ASSESSMENT: Intrauterine (IUP) at 39.2 weeks' gestation, category 1 heart rate tracing, group B streptococcus (GBS) positive, elective induction of labor. PLAN OF CARE: Admit to labor and delivery. Out of bed ad sarina. Clear-liquid diet. Saline lock and laboratories per unit protocol. Anesthesia consult per patient's request. Lactated Ringer 800 mL bolus prior to epidural. Intravenous (IV) Pitocin to be used for induction of labor. Anticipate cervical change and spontaneous vaginal delivery.
--- NOTE | 2018-12-09 18:16 | IPNPDOC ---
Obstetrical Progress Note Date of Service Dec 09, 2018 Subjective Reports she is feeling contractions but they are tolerable and she is coping well. Objective Vital Signs Date Time Temp Pulse Resp B/P (MAP) Pulse Ox O2 Delivery O2 Flow Rate FiO2 12/09/18 17:57 98.2 90 18 99/72 (81) Assessment Heart Rate (FHR): 130 Variability: Moderate Accelerations: Positive Decelerations: None Heart Rate Tracing: Category I Tocometer Contractions: Yes Frequency: regular Sterile Vaginal Examination Dilation: 3 cm Effacement (%): other (75%) Station: -2 Cervical Consistency: Soft Cervical Position: Middle Postion/Presentation: Cephalic presentation Assessment and Plan EGA at Admission: 39.2 Status: Reassuring Group B Streptococcus: Positive Anticipate: Vaginal Delivery Additional Comments AROM to a moderate amount of clear fluid. Pitocin at 12 mu/hour. DIONI LAUREN CNM Dec 09, 2018 18:16
[2018-12-09] MEDS ORDERED: FENTANYL 2MCG/ML ROPIVACAINE 0.2% IN 0.9% NACL 100ML IVBAG As Ordered ONE (19:33)
[2018-12-09] MEDS ORDERED: ceFAZolin SOD 1 GM in D5W MINI-BAG PLUS 50 ML IV SCH (20:15)
[2018-12-09] MEDS: ceFAZolin SOD 1 GM in D5W MINI-BAG PLUS 50 ML IV SCH (20:44)
[2018-12-09] MEDS ORDERED: LACTATED RINGER'S 1000 ML IV PRN (20:45)
[2018-12-09] MEDS ORDERED: REFRIGERATOR IV KEYS XX PRN (20:45)
[2018-12-09] MEDS ORDERED: EPIDURAL/PCA KEYS XX PRN (20:45)
[2018-12-09] MEDS ORDERED: EPIDURAL COMMENT XX SCH (20:45)
[2018-12-09] MEDS ORDERED: ONDANSETRON 4MG/2ML VIAL (J2405) IV PRN (20:45)
[2018-12-09] MEDS ORDERED: FENTANYL/ROPIVACAINE/NACL BAG 100 ML EPIDURAL SCH (20:45)
[2018-12-09] MEDS ORDERED: NALOXONE INJ 0.4 MG/1 ML VIAL (J2310) IV PRN (20:45)
[2018-12-09] MEDS ORDERED: diphenhydrAMINE INJ 50MG/ML VIAL (J1200) IV PRN (20:45)
[2018-12-09] MEDS: ePHEDrine SULFATE 25 MG/5 ML(5MG/ML) SYRINGE IV PRN ×3 (21:09→22:52)
--- NOTE | 2018-12-10 00:44 | IPNPDOC ---
Obstetrical Progress Note Date of Service Dec 10, 2018 Subjective Patient comfortable with epidural. Objective Vital Signs Date Time Temp Pulse Resp B/P (MAP) Pulse Ox O2 Delivery O2 Flow Rate FiO2 12/09/18 18:59 94 150/66 (94) 12/09/18 17:57 98.2 18 Assessment Heart Rate (FHR): 120 Variability: Moderate Accelerations: Positive Decelerations: None Heart Rate Tracing: Category I Tocometer Contractions: Yes Sterile Vaginal Examination Dilation: 5 cm Effacement (%): 100% Station: -1 Postion/Presentation: Cephalic presentation Assessment and Plan EGA at Admission: 39.2 Weeks & Days 39.3 Status: Reassuring Group B Streptococcus: Positive Anticipate: Vaginal Delivery Additional Comments IV Pitocin at 18 mu/hour. IUPC placed due to difficulty monitoring contractions at time. DIONI LAUREN CNM Dec 10, 2018 00:44
[2018-12-10] MEDS ORDERED: OXYTOCIN DRIP 30 UNITS in APPROPRIATE DILUENT 1 EA IV SCH (02:19)
[2018-12-10] MEDS ORDERED: DIBUCAINE 1% OINTMENT 30GM TOP PRN (02:30)
[2018-12-10] MEDS ORDERED: METHYLERGONOVINE MALEATE 0.2 MG TAB PO PRN (02:30)
[2018-12-10] MEDS ORDERED: RHOGAM 300 MCG (1500 IU) INJ (J2790) IM SCH (02:30)
[2018-12-10] MEDS ORDERED: IBUPROFEN 600 MG TAB PO PRN (02:30)
[2018-12-10] MEDS ORDERED: ANUSOL HC CREAM 30GM TOP PRN (02:30)
[2018-12-10] MEDS ORDERED: ACETAMINOPHEN TAB 650MG DOSE (2X325MG) PO PRN (02:30)
[2018-12-10] MEDS ORDERED: MEASLES,MUMPS,RUBELLA VACCINE INJ (MMR-II) (90707) SC SCH (02:30)
[2018-12-10] MEDS ORDERED: DOCUSATE SODIUM 100 MG CAP PO PRN (02:30)
[2018-12-10 04:00] VITALS: BP 108/64
[2018-12-10 06:00] VITALS: BP 107/54
[2018-12-10] MEDS: IBUPROFEN 800 MG TAB PO PRN ×2 (06:29→16:40)
[2018-12-10] MEDS: ceFAZolin SOD 1 GM in D5W MINI-BAG PLUS 50 ML IV SCH (07:19)
[2018-12-10] MEDS: PRENATAL VITAMINS CHEWABLE TABLET PO SCH (08:17)
--- NOTE | 2018-12-10 11:20 | DN ---
DATE OF DELIVERY: 12/10/2018 TIME: 0140 hours STATUS: Delivered, spontaneous vaginal delivery. ANESTHESIA: Epidural. PROVIDER: Huong Beltran CNM, [facility] ESTIMATED BLOOD LOSS: 300 mL. FINDINGS: Female, 6 pounds 15 ounces, 3180 grams, scores 8 and 9. The patient is a 23-year-old female, who is now a 2, para 2-0-0-2 at 39 weeks 3 days gestation who presented to labor and delivery for an elective induction of labor. She progressed to fully dilated at 0118 hours and pushed to a living female at 0140 hours in the OA position with restitution to ROP. The anterior shoulder delivered with ease and the corpus immediately followed. The baby was placed on the maternal abdomen, active and crying. The cord was clamped times two after 3 minutes and cut by the father of the baby. A three vessel cord was noted. The placenta delivered spontaneously and was intact at 0145 hours. Uterine hemostasis was achieved via rapid infusion of IV Pitocin and fundal massage. The perineum, cervix, vagina were inspected and found to be intact. Mother plans to breast feed and formula feed her . They are naming their daughter Carrie. Both mother and baby are in stable condition. All counts of instruments and sponges were correct.
[2018-12-10] MEDS: ACETAMINOPHEN 500 MG TAB PO PRN ×2 (14:22→20:06)
[2018-12-10 17:49] VITALS: BP 121/58
[2018-12-11 06:41] VITALS: BP 114/80
[2018-12-11] MEDS ORDERED: IBUP80TA PO (07:10)
[2018-12-11] MEDS ORDERED: ACET-683 PO (07:10)
[2018-12-11] MEDS: PRENATAL VITAMINS CHEWABLE TABLET PO SCH (08:02)
== END 2018-12-11 10:44 | disposition home or self-care (01) | DRG 560 ==
LOC: M LDI 11:06 → M OBS 12-10 03:56
PROVIDERS: ADMIT Advanced Practice Midwife; ATTEND Advanced Practice Midwife
PROC: 10907ZC Drainage of Amniotic Fluid, Therapeutic from Products of Conception, Via Natural or Artificial Opening (ICD-10-PCS; 2018-12-09)
PROC: 3E033VJ Introduction of Other Hormone into Peripheral Vein, Percutaneous Approach (ICD-10-PCS; 2018-12-09)
PROC: 10E0XZZ Delivery of Products of Conception, External Approach (ICD-10-PCS; principal; 2018-12-10)
DX: O99.824 Streptococcus B carrier state complicating childbirth (principal); Z3A.39 39 weeks gestation of pregnancy; Z37.0 Single live birth

== ENCOUNTER 2019-02-03 14:42 | Emergency (ER) | payer MEDICAID, OTHER ==
[~2019-02-03] VITALS: Ht 154.9 cm; Wt 86.8 kg
[~2019-02-03 14:42] MED LIST changes: +ACET-683 PO; +IBUP80TA PO
[2019-02-03 17:14] VITALS: BP 126/59
[2019-02-03] MEDS ORDERED: ACETAMINOPHEN TAB 650MG DOSE (2X325MG) PO ONE (17:30)
[2019-02-04] MEDS ORDERED: ONDA4TAB6 PO (23:30)
== END 2019-02-03 17:35 | disposition home or self-care (01) ==
LOC: M ED 14:42
DX: T63.441A Toxic effect of venom of bees, accidental (unintentional), initial encounter (principal); R21 Rash and other nonspecific skin eruption; X58.XXXA Exposure to other specified factors, initial encounter; Y92.89 Other specified places as the place of occurrence of the external cause; E03.9 Hypothyroidism, unspecified; Z91.030 Bee allergy status; Z88.0 Allergy status to penicillin; Z91.018 Allergy to other foods

== ENCOUNTER 2019-02-04 21:00 | Emergency (ER) | payer MEDICAID ==
[~2019-02-04] VITALS: Ht 154.9 cm; Wt 85.5 kg
[2019-02-04] MEDS ORDERED: ACETAMINOPHEN 500 MG TAB PO ONE (21:15)
[2019-02-04] MEDS ORDERED: NS 1,000 ML IV ONE (21:15)
[2019-02-04 21:53] LABS: BASO % 0.2 % (0.0-1.0); HEMATOCRIT 37.9 % (36.0-47.0); HEMOGLOBIN 12.6 g/dl (12.0-15.5); LYMPH # 1.4 10^3/uL (1.5-6.5); LYMPH % 30.2 % (24.0-44.0); MEAN CORPUSCULAR HEMOGLOBIN 27.9 pg (27.0-33.0); MEAN CORPUSCULAR HGB CONC 33.2 g/dl (32.0-36.5); MONO # 0.8 10^3/uL (0.0-0.8); MONO % 17.5 % (0.0-5.0); NEUTROPHILS # 2.4 10^3/uL (1.8-7.7); NEUTROPHILS % 51.9 % (36.0-66.0); PLATELET COUNT, AUTOMATED 210 10^3/uL (150-450); RED BLOOD COUNT 4.51 10^6/uL (4.00-5.40); WHITE BLOOD COUNT 4.6 10^3/uL (4.0-10.0)
[2019-02-04] MEDS ORDERED: ONDANSETRON 4MG/2ML VIAL (J2405) IV ONE (22:15)
[2019-02-04 22:27] LABS: BLOOD UREA NITROGEN 11 MG/DL (7-18); CALCIUM LEVEL 8.7 MG/DL (8.5-10.1); CARBON DIOXIDE LEVEL 28 MEQ/L (21-32); CHLORIDE LEVEL 106 MEQ/L (98-107); GLOMERULAR FILTRATION RATE > 60.0 (>60); GLUCOSE, FASTING 98 MG/DL (70-100); POTASSIUM SERUM 3.8 MEQ/L (3.5-5.1); SODIUM LEVEL 141 MEQ/L (136-145)
[2019-02-04] MEDS ORDERED: ONDA4TAB6 PO (23:30)
[2019-02-04 23:32] VITALS: BP 116/65
[2019-02-05] MEDS ORDERED: ACET-841 PO (21:26)
== END 2019-02-04 23:37 | disposition home or self-care (01) ==
LOC: M ED 21:00
DX: B34.9 Viral infection, unspecified (principal); R50.9 Fever, unspecified; R05 Cough; Z88.0 Allergy status to penicillin; Z88.1 Allergy status to other antibiotic agents; Z91.013 Allergy to seafood; Z91.018 Allergy to other foods
CPT/HCPCS: 71046; 80048; 81001; 85025; 87040; 96361; 96374; 99284; J2405

== ENCOUNTER 2019-02-05 21:14 | Emergency (ER) | payer MEDICAID ==
[~2019-02-05] VITALS: Ht 154.9 cm; Wt 85.5 kg
[2019-02-05 21:14] VITALS: BP 142/86
[~2019-02-05 21:14] MED LIST changes: +ONDA4TAB6 PO
[2019-02-05] MEDS ORDERED: ACET-841 PO (21:26)
[2019-02-05] MEDS ORDERED: IBUPROFEN 600 MG TAB PO ONE (22:00)
[2019-02-05] MEDS ORDERED: ACETAMINOPHEN 325 MG TAB PO ONE (22:00)
[2019-02-06] MEDS ORDERED: BENZ200C70 PO
== END 2019-02-06 00:08 | disposition home or self-care (01) ==
LOC: M ED 21:14
DX: B34.9 Viral infection, unspecified (principal); R05 Cough; Z88.0 Allergy status to penicillin; Z91.018 Allergy to other foods; Z91.030 Bee allergy status; Z79.899 Other long term (current) drug therapy

== ENCOUNTER → 2019-10-09 | Outpatient (REF) | payer OTHER ==
[~2019-10-09] MED LIST changes: +ACET-841 PO; +BENZ200C70 PO
[2019-10-09 11:21] LABS: BASO % 0.5 % (0.0-1.0); EOS # 0.1 10^3/uL (0.0-0.5); EOS % 1.7 % (0.0-3.0); HEMATOCRIT 43.8 % (36.0-47.0); HEMOGLOBIN 14.4 g/dl (12.0-15.5); LYMPH # 2.8 10^3/uL (1.5-5.0); MEAN CORPUSCULAR HEMOGLOBIN 30.1 pg (27.0-33.0); MEAN CORPUSCULAR HGB CONC 32.9 g/dl (32.0-36.5); MEAN CORPUSCULAR VOLUME 91.4 fl (80.0-96.0); MONO # 0.7 10^3/uL (0.0-0.8); MONO % 9.5 % (0.0-5.0); NEUTROPHILS % 51.8 % (36.0-66.0); PLATELET COUNT, AUTOMATED 279 10^3/uL (150-450); RED BLOOD COUNT 4.79 10^6/uL (4.00-5.40); WHITE BLOOD COUNT 7.7 10^3/uL (4.0-10.0)
[2019-10-09 12:27] LABS: FREE T4 1.13 NG/DL (0.76-1.46); THYROID STIMULATING HORMONE 2.61 uIU/ML (0.358-3.740)
== END ==
LOC: M SFHCLERA 10:13
PROVIDERS: ATTEND Family Medicine
DX: Z00.00 Encounter for general adult medical examination without abnormal findings (principal); E03.9 Hypothyroidism, unspecified

== ENCOUNTER 2020-04-15 21:08 | Emergency (ER) | payer OTHER ==
[~2020-04-15] VITALS: Ht 154.9 cm; Wt 110.4 kg
[2020-04-15 22:05] LABS: BASO % 0.4 % (0.0-1.0); EOS # 0.1 10^3/uL (0.0-0.5); EOS % 1.5 % (0.0-3.0); HEMATOCRIT 38.2 % (36.0-47.0); HEMOGLOBIN 12.3 g/dl (12.0-15.5); LYMPH # 2.4 10^3/uL (1.5-5.0); MEAN CORPUSCULAR HEMOGLOBIN 29.4 pg (27.0-33.0); MEAN CORPUSCULAR HGB CONC 32.2 g/dl (32.0-36.5); MEAN CORPUSCULAR VOLUME 91.2 fl (80.0-96.0); MONO # 0.7 10^3/uL (0.0-0.8); MONO % 9.5 % (0.0-5.0); NEUTROPHILS % 55.1 % (36.0-66.0); PLATELET COUNT, AUTOMATED 252 10^3/uL (150-450); RED BLOOD COUNT 4.19 10^6/uL (4.00-5.40); WHITE BLOOD COUNT 7.3 10^3/uL (4.0-10.0)
[2020-04-15 22:44] LABS: BLOOD UREA NITROGEN 9 MG/DL (7-18); CALCIUM LEVEL 9.7 MG/DL (8.5-10.1); CARBON DIOXIDE LEVEL 29 MEQ/L (21-32); CHLORIDE LEVEL 107 MEQ/L (98-107); CREATININE FOR GFR 0.71 MG/DL (0.55-1.30); GLOMERULAR FILTRATION RATE > 60.0 (>60); GLUCOSE, FASTING 76 MG/DL (70-100); HCG, SERUM QUANTITATIVE 4680 MIU/ML; POTASSIUM SERUM 3.9 MEQ/L (3.5-5.1); SODIUM LEVEL 141 MEQ/L (136-145)
--- NOTE | 2020-04-15 23:10 | REPVR ---
PROCEDURE INFORMATION: Exam: US First Trimester, Transabdominal and US , Transvaginal Exam date and time: 04/15/2020 10:28 PM Age: 24 years old Clinical indication: Lmp or gestational age (in weeks): 03/01/2020; Vaginal bleeding, 6 weeks TECHNIQUE: Imaging protocol: Real-time transabdominal obstetrical ultrasound of the maternal pelvis and a first trimester , less than 14 weeks 0 days, with image documentation. Transvaginal imaging was used for better evaluation of the fetus, adnexa, and/or cervix. COMPARISON: No relevant prior studies available. FINDINGS: Last menstrual period: 03/01/2020 Gestation: There is evidence for a single intrauterine with a single gestational sac and a 2 mm in diameter yolk sac. However, no pole is identified. Embryonic/ heart rate: No cardiac activity is visualized. Placenta: Unremarkable. No subchorionic bleed. Amniotic fluid: Amniotic fluid is normal for gestational age. BIOMETRY: Gestational age (AUA): 5 weeks 3 days Gestational age by LMP: 6 weeks 3 days Estimated due date (AUA): 12/13/2020 Estimated due date by LMP: 12/06/2020 Mean sac diameter: 0.85 cm MATERNAL: Uterus: The anteverted uterus measures 8.5 cm x 4.5 cm x 7.6 cm. No myometrial mass is noted. Cervix: Unremarkable. Right adnexa: The right ovary is normal in appearance. No right ovarian cyst or right adnexal mass is noted. The right ovary measures 2.1 cm x 2.6 cm x 1.9 cm. The color Doppler flow and spectral waveforms within the right ovary are within normal limits, without evidence for right ovarian torsion. Left adnexa: The left ovary is normal in appearance. No left ovarian cyst or left adnexal mass is noted. The left ovary measures 3.1 cm x 1.4 cm x 1.2 cm. The color Doppler flow and spectral waveforms within the left ovary are within normal limits, without evidence for left ovarian torsion. Intraperitoneal space: No intraperitoneal free fluid. IMPRESSION: Single intrauterine gestational sac with a yolk sac, but no pole measuring 5 weeks 3 days and with an estimated due date on 12/13/2020 based on the mean sac diameter. Differential diagnostic considerations include an early intrauterine gestation versus anembryonic . Correlation with serial beta HCG levels and a follow-up ultrasound in 7-10 days are suggested to re-evaluate the for viability. Electronically signed by: Andrew Bowie On 04/15/2020 23:09:41 PM
[2020-04-16 02:14] VITALS: BP 125/76
== END 2020-04-16 02:13 | disposition home or self-care (01) ==
LOC: M ED 21:08
DX: O26.891 Other specified pregnancy related conditions, first trimester (principal); N89.8 Other specified noninflammatory disorders of vagina; Z3A.01 Less than 8 weeks gestation of pregnancy; O99.281 Endocrine, nutritional and metabolic diseases complicating pregnancy, first trimester; E03.9 Hypothyroidism, unspecified; Z88.0 Allergy status to penicillin; Z88.8 Allergy status to other drugs, medicaments and biological substances; Z91.018 Allergy to other foods; Z91.030 Bee allergy status

== ENCOUNTER → 2020-04-18 | Outpatient (CLI) | payer OTHER | LOC: M LAB 09:38 | PROVIDERS: ATTEND Advanced Practice Midwife | DX: Z34.90 Encounter for supervision of normal pregnancy, unspecified, unspecified trimester (principal) ==

== ENCOUNTER → 2020-04-20 | Outpatient (REF) | payer OTHER | LOC: M LAB REF 16:25 | PROVIDERS: ATTEND Physician Assistant | DX: J02.9 Acute pharyngitis, unspecified (principal) ==

== ENCOUNTER → 2020-04-29 | Outpatient (REF) | payer OTHER ==
[2020-04-29 17:17] LABS: HEMATOCRIT 39.9 % (36.0-47.0); MEAN CORPUSCULAR HEMOGLOBIN 29.1 pg (27.0-33.0); MEAN CORPUSCULAR HGB CONC 32.6 g/dl (32.0-36.5); MEAN CORPUSCULAR VOLUME 89.5 fl (80.0-96.0); PLATELET COUNT, AUTOMATED 281 10^3/uL (150-450); RED BLOOD COUNT 4.46 10^6/uL (4.00-5.40); WHITE BLOOD COUNT 9.7 10^3/uL (4.0-10.0)
[2020-04-29 17:49] LABS: FREE T4 1.18 NG/DL (0.76-1.46)
[2020-04-29 18:30] LABS: HIV 1&2 SCREEN CENTAUR NEGATIVE (NEGATIVE)
[2020-04-29 19:07] LABS: CHLAMYDIA DNA AMPLIFICATION NEGATIVE (NEGATIVE); GC DNA AMPLIFICATION NEGATIVE (NEGATIVE)
== END ==
LOC: M PLALAB 14:51
PROVIDERS: ATTEND Advanced Practice Midwife
DX: O99.281 Endocrine, nutritional and metabolic diseases complicating pregnancy, first trimester (principal); Z3A.00 Weeks of gestation of pregnancy not specified; E07.9 Disorder of thyroid, unspecified

== ENCOUNTER → 2020-05-16 | Outpatient (REF) | payer OTHER | LOC: M PLALAB 12:45 | PROVIDERS: ATTEND Advanced Practice Midwife | DX: O99.281 Endocrine, nutritional and metabolic diseases complicating pregnancy, first trimester (principal) ==

== ENCOUNTER → 2020-06-17 | Outpatient (CLI) | payer OTHER | LOC: M PLALAB 10:56 | PROVIDERS: ATTEND Advanced Practice Midwife | DX: Z34.82 Encounter for supervision of other normal pregnancy, second trimester (principal); Z36.89 Encounter for other specified antenatal screening ==

== ENCOUNTER → 2020-08-01 | Outpatient (CLI) | payer OTHER ==
--- NOTE | 2020-08-01 16:37 | REP ---
INDICATION: ANATOMY. COMPARISON: 04/15/2020. TECHNIQUE: Real-time sonographic evaluation of the gravid uterus performed. FINDINGS: Estimated gestational age is20 weeks 3 days, EDC 12/16/2020. Today's measurements indicate appropriate growth. Presentation: Breech Placenta posterior, grade 0, without evidence of placenta previa. heart rate is recorded at 143 beats per minute. Amniotic fluid is subjectively normal. Closed cervical length is measured at 3.8 cm. Biometry chart: BPD: 49 mm, 20 weeks 6 days, 63rd percentile. HC: 192 mm, 21 weeks 3 days, 80th percentile AC: 161 mm, 21 weeks 1 days, 66th percentile Femur length: 32 mm, 20 weeks 0 days, 39th percentile HC to AC ratio: 1.19, normal range 1.06-1.24. Estimated weight: 375g, 64th percentile. anatomy: Cranium: Grossly normal Lateral Ventricles/Choroid Plexus: Grossly normal Posterior Fossa/Cerebellum: Grossly normal Nose/lips/profile: Grossly normal Four chamber heart: Grossly normal Right ventricular outflow tract: Grossly normal Left ventricular outflow tract: Grossly normal Left-sided stomach: Grossly normal Kidneys: Grossly normal Bladder: Grossly normal Cord Insertion: Grossly normal 3 vessel cord: Grossly normal Spine: Grossly normal IMPRESSION: Viable single intrauterine gestation as above. <Electronically signed by Frantz Burch > 08/01/20 [id number]
== END ==
LOC: M WHC 10:59
PROVIDERS: ATTEND Advanced Practice Midwife
DX: O99.282 Endocrine, nutritional and metabolic diseases complicating pregnancy, second trimester (principal); Z3A.20 20 weeks gestation of pregnancy; O32.1XX0 Maternal care for breech presentation, not applicable or unspecified

== ENCOUNTER 2020-08-17 08:28 | Emergency (ER) | payer OTHER ==
[~2020-08-17] VITALS: Ht 154.9 cm; Wt 108.5 kg
[2020-08-17] MEDS ORDERED: NS 1,000 ML IV ONE (09:00)
[2020-08-17 09:19] LABS: BASO % 0.3 % (0.0-1.0); EOS # 0.1 10^3/uL (0.0-0.5); EOS % 0.5 % (0.0-3.0); HEMATOCRIT 35.3 % (36.0-47.0); HEMOGLOBIN 11.6 g/dl (12.0-15.5); LYMPH # 2.1 10^3/uL (1.5-5.0); LYMPH % 22.5 % (24.0-44.0); MEAN CORPUSCULAR HEMOGLOBIN 29.5 pg (27.0-33.0); MEAN CORPUSCULAR HGB CONC 32.9 g/dl (32.0-36.5); MEAN CORPUSCULAR VOLUME 89.8 fl (80.0-96.0); MONO # 0.8 10^3/uL (0.0-0.8); MONO % 8.9 % (2.0-8.0); NEUTROPHILS # 6.1 10^3/uL (1.5-8.5); NEUTROPHILS % 66.6 % (36.0-66.0); PLATELET COUNT, AUTOMATED 245 10^3/uL (150-450); RED BLOOD COUNT 3.93 10^6/uL (4.00-5.40); WHITE BLOOD COUNT 9.2 10^3/uL (4.0-10.0)
[2020-08-17 09:47] LABS: ALBUMIN 2.8 GM/DL (3.2-5.2); ALT/SGPT 15 U/L (12-78); BILIRUBIN,DIRECT 0.1 MG/DL (0.0-0.2); BILIRUBIN,TOTAL 0.3 MG/DL (0.2-1.0); BLOOD UREA NITROGEN 6 MG/DL (7-18); CALCIUM LEVEL 8.5 MG/DL (8.5-10.1); CARBON DIOXIDE LEVEL 25 MEQ/L (21-32); CHLORIDE LEVEL 109 MEQ/L (98-107); CK-MB VALUE MASS < 1.0 NG/ML (<3.6); CPK CREATINE PHOSPHOKINASE 46 U/L (26-192); CREATININE FOR GFR 0.52 MG/DL (0.55-1.30); GLOMERULAR FILTRATION RATE > 60.0 (>60); GLUCOSE, FASTING 82 MG/DL (70-100); LIPASE 70 U/L (73-393); MB/CK RELATIVE INDEX 2.17 (< OR =4); POTASSIUM SERUM 3.9 MEQ/L (3.5-5.1); SODIUM LEVEL 139 MEQ/L (136-145); TOTAL PROTEIN 6.3 GM/DL (6.4-8.2); TROPONIN I 0.02 NG/ML (< 0.10)
[2020-08-17] MEDS ORDERED: FAMOTIDINE 20 MG TAB PO ONE (10:00)
[2020-08-17] MEDS ORDERED: FAMO20TA PO (12:01)
[2020-08-17 12:10] VITALS: BP 102/62
--- NOTE | 2020-08-18 03:16 | ECGEPIP ---
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
== END 2020-08-17 12:12 | disposition home or self-care (01) ==
LOC: M ED 08:28
DX: O99.612 Diseases of the digestive system complicating pregnancy, second trimester (principal); Z3A.25 25 weeks gestation of pregnancy; Z88.1 Allergy status to other antibiotic agents; Z91.030 Bee allergy status

== ENCOUNTER 2020-09-06 20:06 | Outpatient (CLI) | payer OTHER ==
[~2020-09-06] VITALS: Ht 154.9 cm; Wt 108.3 kg
[~2020-09-06 20:06] MED LIST changes: +FAMO20TA PO
[2020-09-06 20:27] VITALS: BP 121/59
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
[2020-09-06] MEDS ORDERED: OMEP-218 PO (21:16)
[2020-09-06] MEDS ORDERED: CLEO300C2 PO (22:47)
== END 2020-09-06 20:55 | disposition other institution (70) ==
LOC: M LDO 20:06
PROVIDERS: ATTEND Specialist
DX: O99.891 Other specified diseases and conditions complicating pregnancy (principal); Y04.1XXA Assault by human bite, initial encounter; Z3A.30 30 weeks gestation of pregnancy

== ENCOUNTER 2020-09-06 21:08 | Emergency (ER) | payer OTHER ==
[~2020-09-06] VITALS: Ht 154.9 cm; Wt 108.3 kg
[2020-09-06 21:09] VITALS: BP 126/80
[2020-09-06] MEDS ORDERED: OMEP-218 PO (21:16)
[2020-09-06] MEDS ORDERED: BOOSTRIX/ADACEL VACCINE (DIPHTH/PERTUSS/ACELL/TETANUS) 0.5ML SYR IM ONE (22:35)
[2020-09-06] MEDS ORDERED: CLEO300C2 PO (22:47)
[2020-09-06 22:54] LABS: BASO % 0.3 % (0.0-1.0); EOS % 0.4 % (0.0-3.0); HEMATOCRIT 36.7 % (36.0-47.0); HEMOGLOBIN 11.9 g/dl (12.0-15.5); LYMPH # 2.1 10^3/uL (1.5-5.0); LYMPH % 19.6 % (24.0-44.0); MEAN CORPUSCULAR HEMOGLOBIN 29.7 pg (27.0-33.0); MEAN CORPUSCULAR HGB CONC 32.4 g/dl (32.0-36.5); MEAN CORPUSCULAR VOLUME 91.5 fl (80.0-96.0); MONO # 0.7 10^3/uL (0.0-0.8); MONO % 6.7 % (2.0-8.0); NEUTROPHILS # 7.8 10^3/uL (1.5-8.5); NEUTROPHILS % 72.1 % (36.0-66.0); PLATELET COUNT, AUTOMATED 253 10^3/uL (150-450); RED BLOOD COUNT 4.01 10^6/uL (4.00-5.40); WHITE BLOOD COUNT 10.8 10^3/uL (4.0-10.0)
[2020-09-06 23:27] LABS: ALBUMIN 2.8 GM/DL (3.2-5.2); ALT/SGPT 17 U/L (12-78); BILIRUBIN,TOTAL 0.3 MG/DL (0.2-1.0); BLOOD UREA NITROGEN 9 MG/DL (7-18); CALCIUM LEVEL 8.5 MG/DL (8.5-10.1); CARBON DIOXIDE LEVEL 25 MEQ/L (21-32); CHLORIDE LEVEL 108 MEQ/L (98-107); CREATININE FOR GFR 0.49 MG/DL (0.55-1.30); GLOMERULAR FILTRATION RATE > 60.0 (>60); GLUCOSE, FASTING 80 MG/DL (70-100); POTASSIUM SERUM 4.1 MEQ/L (3.5-5.1); SODIUM LEVEL 138 MEQ/L (136-145); TOTAL PROTEIN 6.7 GM/DL (6.4-8.2)
[2020-09-07 10:36] LABS: HEPATITIS B SURFACE ANTIBODY NEGATIVE (POSITIVE)
[2020-09-07 10:46] LABS: HEPATITIS B SURFACE ANTIGEN NEGATIVE (NEGATIVE)
[2020-09-07 11:15] LABS: HEPATITIS C VIRUS ABY INDEX < 0.0 INDEX (<0.8); HIV 1&2 SCREEN CENTAUR NEGATIVE (NEGATIVE)
== END 2020-09-06 22:53 | disposition home or self-care (01) ==
LOC: M ED 21:08
DX: O9A.212 Injury, poisoning and certain other consequences of external causes complicating pregnancy, second trimester (principal); W50.3XXA Accidental bite by another person, initial encounter; Y92.9 Unspecified place or not applicable; Y93.9 Activity, unspecified; Y99.9 Unspecified external cause status; Z3A.26 26 weeks gestation of pregnancy; O99.282 Endocrine, nutritional and metabolic diseases complicating pregnancy, second trimester; O99.212 Obesity complicating pregnancy, second trimester; Z88.0 Allergy status to penicillin; Z91.018 Allergy to other foods; Z91.030 Bee allergy status

== ENCOUNTER → 2020-10-04 | Outpatient (CLI) | payer SELFPAY ==
[~2020-10-04] MED LIST changes: +CLEO300C2 PO; +OMEP-218 PO
== END ==
LOC: M LABSMTC 10:07
PROVIDERS: ATTEND Pediatrics
DX: Z20.822 Contact with and (suspected) exposure to COVID-19 (principal)

== ENCOUNTER → 2020-10-10 | Outpatient (REF) | payer OTHER ==
[2020-10-10 15:40] LABS: HEMATOCRIT 35.7 % (36.0-47.0); HEMOGLOBIN 11.6 g/dl (12.0-15.5); MEAN CORPUSCULAR HEMOGLOBIN 29.4 pg (27.0-33.0); MEAN CORPUSCULAR HGB CONC 32.5 g/dl (32.0-36.5); MEAN CORPUSCULAR VOLUME 90.6 fl (80.0-96.0); PLATELET COUNT, AUTOMATED 260 10^3/uL (150-450); RED BLOOD COUNT 3.94 10^6/uL (4.00-5.40); WHITE BLOOD COUNT 9.1 10^3/uL (4.0-10.0)
[2020-10-10 16:14] LABS: FREE T4 1.1 NG/DL (0.76-1.46); THYROID STIMULATING HORMONE 0.581 uIU/ML (0.358-3.740)
== END ==
LOC: M PLALAB 12:14
PROVIDERS: ATTEND Advanced Practice Midwife
DX: O99.282 Endocrine, nutritional and metabolic diseases complicating pregnancy, second trimester (principal)

== ENCOUNTER 2020-10-28 11:22 | Outpatient (CLI) | payer OTHER ==
[~2020-10-28] VITALS: Ht 154.9 cm; Wt 104.5 kg
[2020-10-28 11:45] VITALS: BP 96/53
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
== END 2020-10-28 12:37 | disposition home or self-care (01) ==
LOC: M LDO 11:22
PROVIDERS: ATTEND Advanced Practice Midwife
DX: O9A.213 Injury, poisoning and certain other consequences of external causes complicating pregnancy, third trimester (principal); Z3A.33 33 weeks gestation of pregnancy; S30.1XXA Contusion of abdominal wall, initial encounter; W22.8XXA Striking against or struck by other objects, initial encounter; Y92.69 Other specified industrial and construction area as the place of occurrence of the external cause

== ENCOUNTER → 2020-11-15 | Outpatient (CLI) | payer OTHER ==
--- NOTE | 2020-11-15 14:52 | REP ---
INDICATION: MATERNAL WEIGHT LOSS DURING ,GROWTH,MARLYS COMPARISON: 08/01/2020 TECHNIQUE: Transabdominal obstetrical ultrasound with color Doppler evaluation. FINDINGS: Examination demonstrates a single live intrauterine in cephalic presentation. motion is identified by technologist. Placenta is noted posterior and grade 2 without evidence for placenta previa or abruption. Amniotic fluid volume is normal. Cervix appears closed. Selected gestational age: 35 weeks 4 days with SHAHAB 12/16/2020. Gestational age by current measurements 37 weeks 0 days with SHAHAB 12/06/2020. FHR equals 161 beats per minute. BPD: 9.4 cm at 38 weeks 1 day HC: 33.9 cm at 39 weeks 0 days AC: 33.3 cm at 37 weeks 1 day FL: 6.9 cm at 35 weeks 3 days HL: 6.1 cm at 35 weeks 1 day HC/AC: 1.02 Estimated weight 3108 grams (86thpercentile). MARLYS: 19.8 cm (7.8-24.9) Umbilical artery SD ratio: 2.64 (1.66-3.54) IMPRESSION: Single live advanced gestation in cephalic presentation. Estimated weight is within normal limits. No gross abnormality identified. <Electronically signed by Tim Dunaway > 11/15/20 [id number]
== END ==
LOC: M WHC 07:29
PROVIDERS: ATTEND Advanced Practice Midwife
DX: O99.283 Endocrine, nutritional and metabolic diseases complicating pregnancy, third trimester (principal); Z3A.37 37 weeks gestation of pregnancy

== ENCOUNTER → 2020-11-18 | Outpatient (REF) | payer OTHER | LOC: M SFHCWAGY 13:04 | PROVIDERS: ATTEND Advanced Practice Midwife | DX: O99.283 Endocrine, nutritional and metabolic diseases complicating pregnancy, third trimester (principal) ==

== ENCOUNTER → 2020-12-09 | Outpatient (CLI) | payer OTHER ==
[~2020-12-09] MED LIST changes: +DOK1CAP7 PO; +OMEP40CA4 PO; +SERT-141 PO
== END ==
LOC: M LABSMTC 14:19
PROVIDERS: ATTEND Specialist
DX: Z01.812 Encounter for preprocedural laboratory examination (principal); Z20.822 Contact with and (suspected) exposure to COVID-19

== ENCOUNTER 2020-12-12 08:05 | Inpatient (IN) | payer OTHER ==
[2020-12-12] VITALS (34 sets, daily range): BP systolic 87–136; BP diastolic 50–88
[~2020-12-12] VITALS: Ht 154.9 cm; Wt 102.9 kg
[~2020-12-12 08:05] MED LIST changes: -DOK1CAP7 PO; -OMEP40CA4 PO; -SERT-141 PO
[2020-12-12] MEDS ORDERED: OMEP40CA4 PO (08:35)
[2020-12-12] MEDS ORDERED: SERT-141 PO (08:35)
[2020-12-12] MEDS ORDERED: LACTATED RINGER'S 1000 ML IV STA (08:48)
[2020-12-12] MEDS ORDERED: TRANEXAMIC ACID INJection 1,000 MG in NS 100 ML IV PRN (08:50)
[2020-12-12] MEDS ORDERED: LIDOCAINE 1% MDV 20ML VIAL INFIL PRN (08:50)
[2020-12-12] MEDS ORDERED: OXYTOCIN DRIP 30 UNITS in IV 1 EA IV PRN (08:50)
[2020-12-12] MEDS ORDERED: METHYLERGONOVINE MALEATE 0.2 MG/ML VIAL (J2210) IM PRN (08:50)
[2020-12-12] MEDS ORDERED: CARBOPROST TROMETHAMINE 250 MCG/ML AMP IM PRN (08:50)
[2020-12-12] MEDS ORDERED: miSOPROStol 50MCG 1/2 TABLET PO ONE (09:20)
[2020-12-12 09:30] LABS: HEMATOCRIT 32.2 % (36.0-47.0); HEMOGLOBIN 10.5 g/dl (12.0-15.5); MEAN CORPUSCULAR HEMOGLOBIN 29.3 pg (27.0-33.0); MEAN CORPUSCULAR HGB CONC 32.6 g/dl (32.0-36.5); MEAN CORPUSCULAR VOLUME 89.9 fl (80.0-96.0); PLATELET COUNT, AUTOMATED 240 10^3/uL (150-450); RED BLOOD COUNT 3.58 10^6/uL (4.00-5.40); WHITE BLOOD COUNT 8.6 10^3/uL (4.0-10.0)
--- NOTE | 2020-12-12 10:19 | HPEPDOC ---
Obstetrical History & Physical General Date of Admission Dec 12, 2020 at 08:05 Primary Care Physician: DIONI LAUREN CNM History of Present Illness Mahsa is a 25F at 39.3wks gestation w/ SHAHAB of 12/16/20 based off of 1st trimester u/s. She initiated care in her first trimester of with [facility]. Her has been complicated by hx of obesity, hypothyroidism on 75mcg levothyroxine, depression on 50mg zoloft. She presents today for elective induction. Reports active movement, occasional contractions. Denies vaginal bleeding, leaking of fluid. Chief Complaint: Induction of labor Information Provided By: Patient Age: 25 : 3 Term: 2 Pre-term: 0 Abortions: 0 Livin Care Care: Good Care Number of Visits: 14 Dating Final EDC: Dec 16, 2020 Final EDC by: 1st trimester (US) LMP: Mar 01, 2020 EGA at Admission: 39.3 Antepartum Course Diagnos(e)s obesity, hypothyroidism, depression Height (inches): 61 Pre- weight (lbs.): 240 Admission Weight (lbs.): 226.3 Past Medical History Past Obstetrical History #1: Past Obstetrical History: Primgravida Date of Delivery: Jan 03, 2014 Gestation: 41.2 Type of Delivery: Spontaneous Vaginal Del. Sex of : Female (8.15) Complications: No Past Obstetrical History #2: Past Obstetrical History: Multigravida Date of Delivery: Dec 10, 2018 Gestation: 39.3 Type of Delivery: Spontaneous Vaginal Del. 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 Past Medical History Medical History b/l carpal tunnel, compression fx T7 Surgical History: Breast reduction (04/2016) Family History Significant Family History: Cancer (PGM (breast)), Diabetes (MGF, F), Heart disease (PGM, MGF), Renal disease (GF), Hyperlipidemia (F), Other (Tomi's thyroiditis (M)) Social History Marital Status: Family situation: Spouse/partner home Psychosocial History: Depression * Smoker: non-smoker Alcohol: Denies Drugs: denies Imunizations Tdap status: current Allergies Coded Allergies: cabbage (Verified Allergy, Severe, COLESLAW - BURNING IN THROAT, RASH, 09/06/20) bee venom protein (honey bee) (Verified Allergy, Mild, SWELLING AT STING SITE, 09/06/20) amoxicillin (Verified Adverse Reaction, Intermediate, SEVERE DIAPER RASH IN INFANCY, 09/06/20) clavulanic acid (Verified Adverse Reaction, Intermediate, 09/06/20) Medications Scheduled Omeprazole (Omeprazole) 40 Mg Capsule.dr, 40 MG PO DAILY Sertraline Hcl (Sertraline HCl) 50 Mg Tablet, 50 MG PO DAILY Physical Examination Physical Examination GENERAL: Alert and oriented times three. BREAST: . ABDOMEN: Gravid and non-tender to touch. FETUS: Is vertex (VTX) by sterile vaginal examination (SVE), fetus is vertex (VTX) by Gianluca. LUNGS: respiratory rate regular w/out use of accessory muscles. EXTREMITIES: generalized edema. No clonus. Vital Signs/I&O Vital Signs Label Value Date Time Patient Temperature 98.8 degrees F 12/12/20 0909 Temperature Source Temporal 12/12/20 0909 Pulse 75 12/12/20 0909 Respiratory Rate 15 bpm 12/12/20 0909 Blood Pressure Assessment 106/68 (81) 12/12/20 0909 Source Automatic Cuff (NIBP) Laboratory Data [facility] Laboratory Tests 2 12/12/20 08:19: Serology Scanned Report Hepatitis B Testing 12/12/20 09:15: CBC/BMP Pertinent Laboratoy Data Blood Type: O+ RBC Antibody Screen: Negative HIV: Negative Hepatitis B: Negative Hepatitis C: Negative Rapid Plasma Reagin: Nonreactive Rubella: Nonreactive Varicella: Nonreactive Chlamydia/Gonorrhea: Negative Group B Streptococcus: Negative Glucose Tolerance Test: 64 Anatomy Ultrasound Ultrasound Date: Apr 29, 2020 Placenta Location: Posterior Normal Anatomy: Yes Placenta Previa: No Estimated Weight (grams): 3108 Other Ultrasounds Growth sono (11/15/20) Information cephalic presentation, post. placenta, MARLYS 19.8cm Steroid Therapy Steroid Therapy: No Vaginal Examination Dilation: 3 cm Effacement: other (75%) Station: -2 Cervical Consistency: Soft Cervical Position: Middle Presentation: Cephalic presentation Position: Vertex (occiput) Assessment Heart Rate (FHR): 135 Variability: Increased Accelerations: Present Decelerations: None Tocometer Contractions: Yes Frequency: irregular, greater than 10 min/apart Duration: less than 60 seconds Assessment/Plan Assessment Mahsa is a 25-year-old (G)3 para (P)2-0-0-2 at 39.3 weeks gestation by 8.3 week ultrasound. Presents to Labor and Delivery (L&D) for elective induction. Plan Admit to L&D. OOB ad sarina. Diet: regular. clears once pitocin started. Group B Streptococcus (GBS) negative. Labs and intravenous (IV) per unit protocol. Counseled on pitocin, cytotec, olivas bulb for induction of labor (IOL). cytotec to be started per order. Anesthesia consult per pt request. Lactated Ringers (LR): 800cc Bolus prior to epidural, then at 125 mL/hr. Anticipate cervical ripening and normal spontaneous delivery (). C-S as appropriate. Eliz Gonzalez DO Dec 12, 2020 10:19 DIONI LAUREN CNM Dec 12, 2020 21:30
[2020-12-12] MEDS ORDERED: OXYTOCIN DRIP 30 UNITS in IV 1 EA IV SCH (13:45)
[2020-12-12] MEDS ORDERED: LR 1,000 ML IV SCH (13:45)
--- NOTE | 2020-12-12 13:50 | IPNPDOC ---
Obstetrical Progress Note Date of Service Dec 12, 2020 Subjective Reports she is feeling some of her contractions. Objective Vital Signs Date Time Temp Pulse Resp B/P (MAP) Pulse Ox O2 Delivery O2 Flow Rate FiO2 12/12/20 12:14 90 118/73 (88) 12/12/20 10:18 97.2 16 Assessment Heart Rate (FHR): 140 Variability: Moderate Accelerations: Positive Decelerations: None Heart Rate Tracing: Category I Tocometer Contractions: Yes Frequency: regular, other (2-4.5 minutes) Assessment and Plan Age: 25 : 3 Term: 2 Pre-term: 0 Abortions: 0 Livin EGA at Admission: 39.3 Status: Reassuring Group B Streptococcus: Negative Anticipate: Vaginal Delivery Additional Comments IV Pitocin to be started per order. DIONI LAUREN CNM Dec 12, 2020 13:50
--- NOTE | 2020-12-12 18:03 | IPNPDOC ---
Obstetrical Progress Note Date of Service Dec 12, 2020 Subjective Reports contractions are stronger. Objective Vital Signs Date Time Temp Pulse Resp B/P (MAP) Pulse Ox O2 Delivery O2 Flow Rate FiO2 12/12/20 15:57 98.1 78 14 136/88 (104) Assessment Heart Rate (FHR): 135 Variability: Moderate Accelerations: Positive Decelerations: None Heart Rate Tracing: Category I Tocometer Contractions: Yes Frequency: regular Sterile Vaginal Examination Dilation: 4 cm Effacement (%): 80% Station: -1 Cervical Consistency: Soft Postion/Presentation: Cephalic presentation Assessment and Plan Age: 25 : 3 Term: 2 Pre-term: 0 Abortions: 0 Livin EGA at Admission: 39.3 Status: Reassuring Group B Streptococcus: Negative Anticipate: Vaginal Delivery Additional Comments IV Pitocin at 12 mu/min. AROM to a large amount of clear fluid after consent from patient. DIONI LAUREN CNM Dec 12, 2020 18:03
[2020-12-12] MEDS ORDERED: FENTANYL 2MCG/ML ROPIVACAINE 0.2% IN 0.9% NACL 100ML IVBAG As Ordered ONE (19:06)
[2020-12-12] MEDS ORDERED: LACTATED RINGER'S 1000 ML IV PRN (20:05)
[2020-12-12] MEDS ORDERED: ONDANSETRON 4MG/2ML VIAL IV PRN (20:05)
[2020-12-12] MEDS ORDERED: EPIDURAL COMMENT XX SCH (20:05)
[2020-12-12] MEDS ORDERED: FENTANYL/ROPIVACAINE/NACL BAG 100 ML EPIDURAL SCH (20:05)
[2020-12-12] MEDS ORDERED: EPIDURAL/PCA KEYS XX PRN (20:05)
[2020-12-12] MEDS ORDERED: diphenhydrAMINE 50MG/ML VIAL (J1200) IV PRN (20:05)
[2020-12-12] MEDS ORDERED: NALOXONE INJ 0.4MG/1ML VIAL (J2310 PER 1MG) IV PRN (20:05)
[2020-12-12] MEDS ORDERED: ePHEDrine SULFATE 25 MG/5 ML(5MG/ML) SYRINGE IV PRN (20:05)
[2020-12-12] MEDS ORDERED: REFRIGERATOR IV KEYS XX PRN (20:05)
[2020-12-12] MEDS ORDERED: DIBUCAINE 1% OINTMENT 30GM TOP PRN (21:20)
[2020-12-12] MEDS ORDERED: ANUSOL HC CREAM 30GM TOP PRN (21:20)
[2020-12-12] MEDS ORDERED: ACETAMINOPHEN 500 MG TAB PO PRN (21:20)
[2020-12-12] MEDS ORDERED: METHYLERGONOVINE MALEATE 0.2 MG TAB PO PRN (21:20)
[2020-12-12] MEDS ORDERED: DOCUSATE SODIUM 100MG CAPSULE PO PRN (21:20)
[2020-12-12] MEDS ORDERED: MEASLES,MUMPS,RUBELLA VACCINE INJ (MMR-II) (90707) SC SCH (21:20)
[2020-12-12] MEDS ORDERED: ACETAMINOPHEN TAB 650MG DOSE (2X325MG) PO PRN (21:20)
[2020-12-12] MEDS ORDERED: RHOGAM 300 MCG (1500 IU) INJ (J2790) IM SCH (21:20)
[2020-12-12] MEDS ORDERED: IBUPROFEN 800 MG TAB PO PRN (21:20)
--- NOTE | 2020-12-12 21:29 | DNPDOC ---
[facility] Delivery Note Delivery Note DATE OF DELIVERY: 12/12/20 at 2052 PREDELIVERY DIAGNOSIS: 39-3/7 weeks' gestation and induction of labor. POST DELIVERY DIAGNOSIS: Delivered. PROCEDURE: Spontaneous vaginal delivery. PIPELINES SUPERINTENDENT: Dioni Beltran CNM, MARY ANESTHESIA: epidural. ESTIMATED BLOOD LOSS: 350 mL. FINDINGS: 7 pounds 9 ounces; 3430 grams; male , Score 8/9. DELIVERY SUMMARY: Mahsa is a 25-year-old female who is now a who presented to L&D for an elective induction of labor. She received a dose of Cytotec and IV Pitocin for induction. She requested an epidural for pain management. Mahsa progressed to fully dilated at 2050 and pushed to a living male in the OA position with restitution to ROT. The anterior shoulder delivered with ease and the corpus immediately followed. The baby was placed [id number] active and crying with stimulation. The cord was clamped x2 after 1 minute and cut by the FOB. A 3-vessel cord was noted. The placenta delivered spontaneously and intact at 2055. Uterine hemostasis was achieved via rapid infusion of IV Pitocin and fundal massage. The vagina, cervix and perineum was inspected and found to be intact. They plan on naming their son "Harvey." She plans to breast and formula feed. All counts of instruments and sponges are correct. Both mom and baby are in stable condition. DIONI BELTRAN CNM Dec 12, 2020 21:29
[2020-12-12] MEDS: IBUPROFEN 600MG TAB PO PRN (23:35)
[2020-12-13 05:38] VITALS: BP 100/62
--- NOTE | 2020-12-13 08:00 | IPNPDOC ---
Progress Note Date of Service: Dec 13, 2020 Day#: 1 Progress Note SUBJECT: Mahsa is a that had an uncomplicated vaginal delivery last night. She has ambulated and voided without any difficulty. She has been doing both breast and formula feeding. Reports cramping with . OBJECTIVE: VITAL SIGNS: Within normal limits, afebrile. Alert and oriented times three. Respiratory: Regular rate without use of accessory muscles Abdomen: Fundus firm at U. Soft, NTTP. Minimal lochia. ASSESSMENT: Day 1 PLAN: 1. Continue supportive nursing care. 2. Saline lock may be removed tonight. 3. Patient to shower and ambulate today. VS, I&O, 24H, Fishbone Vital Signs/I&O Vital Signs Date Time Temp Pulse Resp B/P (MAP) Pulse Ox O2 Delivery O2 Flow Rate FiO2 12/13/20 05:38 96.8 60 14 100/62 (75) 99 Room Air I&O- Last 24 Hours up to 6 AM 12/13/20 05:59 Intake Total 1274.9 ml Output Total 1100 ml Balance 174.9 ml Laboratory Data 24H LABS Laboratory Tests 2 12/12/20 08:19: Serology Scanned Report Hepatitis B Testing 12/12/20 09:15: Syphilis Serology NONREACTIVE 12/12/20 09:16: Nucleated Red Blood Cells % (auto) 0.0 CBC/BMP Laboratory Tests 12/12/20 09:16 DIONI LAUREN CNM Dec 13, 2020 08:00
[2020-12-13] MEDS: SERTRALINE HCL 50 MG TAB PO SCH (10:12)
[2020-12-13] MEDS: PRENATAL VITAMINS CHEWABLE TABLET PO SCH (10:12)
[2020-12-13 18:00] VITALS: BP 126/81
[2020-12-13] MEDS: IBUPROFEN 600MG TAB PO PRN (20:08)
[2020-12-13 22:00] VITALS: BP 109/59
[2020-12-14 06:00] VITALS: BP 111/60
[2020-12-14] MEDS: SERTRALINE HCL 50 MG TAB PO SCH (08:08)
[2020-12-14] MEDS: PRENATAL VITAMINS CHEWABLE TABLET PO SCH (08:12)
--- NOTE | 2020-12-14 08:56 | IPNPDOC ---
Progress Note Date of Service: Dec 14, 2020 Day#: 3 Progress Note PPD 3 SUBJECT: Mahsa is a 25yo [id number] s/p uncomplicated at term after undergoing elective IOL, doing well day # 3. She has been ambulating, voiding spontaneously without issue and tolerating regular diet. Breast feeding without issue. Reports lochia is like a normal period. No f/c/n/v/CP/SOB. OBJECTIVE: VITAL SIGNS: Within normal limits, afebrile. Alert and oriented times three. Abdomen: Fundus firm at U-2. Soft, NTTP. Extremities: no pain with palpation of calves ASSESSMENT: Mahsa is a 25yo [id number] s/p uncomplicated at term after undergoing elective IOL, doing well day # 3. Vitals within normal limits, afebrile, hemodynamically stable with no evidence of infection. PLAN: 1. Discharge to home today. 2. Tylenol and Motrin for pain. 3. Encourage breast feeding and ambulation. 4. undecided on contraception, will readdress at 6wk visit 5. Routine PP visit in 6 weeks in clinic. 6. Discussed return precautions at length. 7. vaginal rest no heavy lifting Radha Aguilera MD VS, I&O, 24H, Fishbone Vital Signs/I&O Vital Signs Date Time Temp Pulse Resp B/P (MAP) Pulse Ox O2 Delivery O2 Flow Rate FiO2 12/14/20 06:00 97.9 58 18 111/60 (77) 99 Room Air Radha Aguilera MD Dec 14, 2020 08:56
[2020-12-14] MEDS ORDERED: DOK1CAP7 PO (08:58)
[2020-12-14] MEDS ORDERED: IBUP80TA PO (08:58)
[2020-12-14] MEDS ORDERED: ACET-683 PO (08:58)
--- NOTE | 2020-12-14 09:00 | DS.PDOC ---
Discharge Summary General Date of Admission Dec 12, 2020 at 08:05 Date of Discharge Dec 14, 2020 Discharge Summary PROCEDURES PERFORMED DURING STAY: spontaneous vaginal delivery ADMITTING DIAGNOSES: 1. Elective IOL at term DISCHARGE DIAGNOSES: 1. Elective IOL at term, delivered COMPLICATIONS/CHIEF COMPLAINT: IOL. HISTORY OF PRESENT ILLNESS/HOSPITAL COURSE: Masha is a 25yo [id number] s/p uncomplicated at term after undergoing elective IOL, doing well day # 3. She has had a benign course. At time of discharge, vitals were within normal limits, she was afebrile, hemodynamically stable with no evidence of infection. DISCHARGE MEDICATIONS: Please see below. ALLERGIES: Please see below. PHYSICAL EXAMINATION ON DISCHARGE: VITAL SIGNS: Within normal limits, afebrile. Alert and oriented times three. Abdomen: Fundus firm at U-2. Soft, NTTP. Extremities: no pain with palpation of calves LABORATORY DATA: Please see below. DIET: regular DISCHARGE INSTRUCTIONS: 1. Discharge to home today. 2. Tylenol and Motrin for pain. 3. Encourage breast feeding and ambulation. 4. undecided on contraception, will readdress at 6wk visit 5. Routine PP visit in 6 weeks in clinic. 6. Discussed return precautions at length. 7. vaginal rest no heavy lifting DISCHARGE CONDITION: Stable TIME SPENT ON DISCHARGE: Greater than 20 minutes. Vital Signs/I&Os Vital Signs Date Time Temp Pulse Resp B/P (MAP) Pulse Ox O2 Delivery O2 Flow Rate FiO2 12/14/20 06:00 97.9 58 18 111/60 (77) 99 Room Air Discharge Medications Scheduled Omeprazole (Omeprazole) 40 Mg Capsule.dr, 40 MG PO DAILY, (Reported) Sertraline Hcl (Sertraline HCl) 50 Mg Tablet, 50 MG PO DAILY, (Reported) Scheduled PRN Acetaminophen (Acetaminophen) 500 Mg Tablet, 1,000 MG PO Q6HP PRN for PAIN LEVEL 6-10 Docusate Sodium (Dok) 100 Mg Capsule, 100 MG PO BIDP PRN for CONSTIPATION Ibuprofen (Ibuprofen) 800 Mg Tablet, 800 MG PO Q8HP PRN for PAIN LEVEL 6-10 Allergies Coded Allergies: cabbage (Verified Allergy, Severe, COLESLAW - BURNING IN THROAT, RASH, 09/06/20) bee venom protein (honey bee) (Verified Allergy, Mild, SWELLING AT STING SITE, 09/06/20) amoxicillin (Verified Adverse Reaction, Intermediate, SEVERE DIAPER RASH IN INFANCY, 09/06/20) clavulanic acid (Verified Adverse Reaction, Intermediate, 09/06/20) Radha Aguilera MD Dec 14, 2020 09:00
== END 2020-12-14 13:23 | disposition home or self-care (01) | DRG 560 ==
LOC: M LDI 08:05 → M OBS 23:02
PROVIDERS: ADMIT Advanced Practice Midwife; ATTEND Advanced Practice Midwife
PROC: 10E0XZZ Delivery of Products of Conception, External Approach (ICD-10-PCS; principal; 2020-12-12)
PROC: 3E033VJ Introduction of Other Hormone into Peripheral Vein, Percutaneous Approach (ICD-10-PCS; 2020-12-12)
PROC: 10907ZC Drainage of Amniotic Fluid, Therapeutic from Products of Conception, Via Natural or Artificial Opening (ICD-10-PCS; 2020-12-12)
DX: O99.214 Obesity complicating childbirth (principal); E66.9 Obesity, unspecified; Z3A.39 39 weeks gestation of pregnancy; Z37.0 Single live birth; O99.284 Endocrine, nutritional and metabolic diseases complicating childbirth; E03.9 Hypothyroidism, unspecified; O99.344 Other mental disorders complicating childbirth; F32.9 Major depressive disorder, single episode, unspecified

== ENCOUNTER → 2021-02-07 | Outpatient (CLI) | payer OTHER ==
[~2021-02-07] MED LIST changes: +DOK1CAP4 PO; +OMEP40CA4 PO; +SERT-141 PO
[2021-02-07 13:54] LABS: HEMATOCRIT 36.9 % (36.0-47.0); HEMOGLOBIN 11.9 g/dl (12.0-15.5); MEAN CORPUSCULAR HEMOGLOBIN 28.5 pg (27.0-33.0); MEAN CORPUSCULAR HGB CONC 32.2 g/dl (32.0-36.5); MEAN CORPUSCULAR VOLUME 88.3 fl (80.0-96.0); PLATELET COUNT, AUTOMATED 231 10^3/uL (150-450); RED BLOOD COUNT 4.18 10^6/uL (4.00-5.40); WHITE BLOOD COUNT 6.1 10^3/uL (4.0-10.0)
== END ==
LOC: M PLALAB 11:38
PROVIDERS: ATTEND Advanced Practice Midwife
DX: R42 Dizziness and giddiness (principal)

== ENCOUNTER 2021-02-10 03:25 | Emergency (ER) | payer OTHER ==
[~2021-02-10] VITALS: Ht 157.5 cm; Wt 94.5 kg
[2021-02-10 06:25] VITALS: BP 160/78
[2021-02-11] MEDS ORDERED: CLIN150C17 PO (08:41)
== END 2021-02-10 06:26 | disposition home or self-care (01) ==
LOC: M ED 03:25
DX: J35.8 Other chronic diseases of tonsils and adenoids (principal); Z88.8 Allergy status to other drugs, medicaments and biological substances; Z88.0 Allergy status to penicillin; Z91.030 Bee allergy status; Z91.018 Allergy to other foods; Z98.890 Other specified postprocedural states

== ENCOUNTER 2021-02-10 22:14 | Emergency (ER) | payer OTHER ==
[~2021-02-10] VITALS: Ht 154.9 cm; Wt 93.8 kg
[2021-02-11 04:59] LABS: BASO % 0.1 % (0.0-1.0); EOS % 0.4 % (0.0-3.0); HEMATOCRIT 36.9 % (36.0-47.0); HEMOGLOBIN 12.3 g/dl (12.0-15.5); LYMPH # 1.9 10^3/uL (1.5-5.0); LYMPH % 26.4 % (24.0-44.0); MEAN CORPUSCULAR HEMOGLOBIN 28.5 pg (27.0-33.0); MEAN CORPUSCULAR HGB CONC 33.3 g/dl (32.0-36.5); MEAN CORPUSCULAR VOLUME 85.6 fl (80.0-96.0); MONO # 0.8 10^3/uL (0.0-0.8); MONO % 10.9 % (2.0-8.0); NEUTROPHILS # 4.4 10^3/uL (1.5-8.5); NEUTROPHILS % 61.9 % (36.0-66.0); PLATELET COUNT, AUTOMATED 196 10^3/uL (150-450); RED BLOOD COUNT 4.31 10^6/uL (4.00-5.40); WHITE BLOOD COUNT 7.1 10^3/uL (4.0-10.0)
[2021-02-11 05:24] LABS: MONO SCRN NEGATIVE (NEGATIVE)
[2021-02-11 06:00] LABS: HCG, SERUM QUANTITATIVE < 1.0 MIU/ML
[2021-02-11] MEDS ORDERED: ISOVUE-370 76% 100ML VIAL As Ordered ONE (06:24)
[2021-02-11] MEDS ORDERED: dexameTHASONE 20MG/5ML VIAL (J1100 PER 1MG) IV ONE (07:05)
[2021-02-11] MEDS ORDERED: cefTRIAXone SOD 2 GM in D5W MINI-BAG PLUS 50 ML IV ONE (07:05)
--- NOTE | 2021-02-11 08:22 | REPVR ---
PROCEDURE INFORMATION: Exam: CT Neck With Contrast Exam date and time: 02/11/2021 6:38 AM Age: 25 years old Clinical indication: Abscess, tonsil; Additional info: Possible tonsillar abscess TECHNIQUE: Imaging protocol: Computed tomography images of the neck with contrast. Radiation optimization: All CT scans at this facility use at least one of these dose optimization techniques: automated exposure control; mA and/or kV adjustment per patient size (includes targeted exams where dose is matched to clinical indication); or iterative reconstruction. Contrast material: ISOVUE 370; Contrast volume: 75 ml; Contrast route: INTRAVENOUS (IV); COMPARISON: CR Chest, 2 view PA, Lat 02/04/2019 11:00 PM FINDINGS: Mastoid air cells: The mastoid air cells are clear. Paranasal sinuses: The visualized paranasal sinuses are clear. Nasopharynx: There is enlargement and mild hyperenhancement of the adenoids. Oropharynx: There is diffuse enlargement and striated hyperenhancement of the bilateral palatine tonsils and the lingual tonsils. There is no evidence of focal fluid collections to suggest abscess formation. Hypopharynx: The hypopharynx appears unremarkable. Larynx: The larynx and epiglottis appear unremarkable. Retropharyngeal space: The retropharyngeal tissues appear unremarkable. Submandibular/Parotid glands: The submandibular glands and the parotid glands are unremarkable and symmetric bilaterally. Thyroid: The thyroid gland is normal. Lymph nodes: There are mildly enlarged bilateral jugular chain lymph nodes. Trachea: The trachea is normal. Lungs: The visualized lung apices are clear. Bones/joints: No suspicious osseous lesions. No acute fractures. Vasculature: The visualized vasculature appears unremarkable. Soft tissues: The soft tissues appear unremarkable. IMPRESSION: Evidence of acute tonsillitis. No evidence of abscess. Electronically signed by: Eliz Braun On 02/11/2021 08:21:28 AM
[2021-02-11] MEDS ORDERED: CLIN150C17 PO (08:41)
[2021-02-11 09:05] VITALS: BP 143/82
== END 2021-02-11 09:05 | disposition home or self-care (01) ==
LOC: M ED 22:14
DX: J03.90 Acute tonsillitis, unspecified (principal); Z88.0 Allergy status to penicillin; Z91.018 Allergy to other foods; Z91.030 Bee allergy status
CPT/HCPCS: 70491; 80047; 84702; 85025; 86308; 87081; 87110; 96365; 96375; 99284; J0696; J1100; Q9967

== ENCOUNTER → 2021-04-05 | Outpatient (REF) | payer OTHER ==
[~2021-04-05] MED LIST changes: +CLIN150C17 PO
== END ==
LOC: M SFHCWAGY 11:52
PROVIDERS: ATTEND Advanced Practice Midwife
DX: Z12.4 Encounter for screening for malignant neoplasm of cervix (principal); R87.610 Atypical squamous cells of undetermined significance on cytologic smear of cervix (ASC-US)

== ENCOUNTER → 2021-10-24 | Outpatient (CLI) | payer OTHER ==
[~2021-10-24] MED LIST changes: +GASTROGRAFIN SOLUTION 30ML (Q9963) As Ordered ONE; +ISOVUE-370 76% 100ML VIAL As Ordered ONE; +OMEP-173 PO; -OMEP-218 PO
== END ==
LOC: M RAD 15:58
PROVIDERS: ATTEND Plastic Surgery Surgery of the Hand
DX: D36.7 Benign neoplasm of other specified sites (principal); M54.07 Panniculitis affecting regions of neck and back, lumbosacral region
CPT/HCPCS: 74178; Q9963; Q9967

== ENCOUNTER → 2021-12-19 | Outpatient (REF) | payer OTHER ==
[~2021-12-19] MED LIST changes: -GASTROGRAFIN SOLUTION 30ML (Q9963) As Ordered ONE; -ISOVUE-370 76% 100ML VIAL As Ordered ONE
[2021-12-19 18:05] LABS: MONO SCRN NEGATIVE (NEGATIVE)
== END ==
LOC: M LAB REF 16:19
PROVIDERS: ATTEND Physician Assistant Medical
DX: R07.0 Pain in throat (principal); R53.83 Other fatigue

== ENCOUNTER → 2022-04-12 | Outpatient (CLI) | payer OTHER ==
[2022-04-12 14:19] LABS: BASO % 0.4 % (0.0-1.0); EOS # 0.1 10^3/uL (0.0-0.5); EOS % 1.6 % (0.0-3.0); HEMATOCRIT 38.3 % (36.0-47.0); HEMOGLOBIN 12.1 g/dl (12.0-15.5); LYMPH % 44.2 % (24.0-44.0); MEAN CORPUSCULAR HGB CONC 31.6 g/dl (32.0-36.5); MEAN CORPUSCULAR VOLUME 91.8 fl (80.0-96.0); MONO # 0.7 10^3/uL (0.0-0.8); MONO % 15.6 % (2.0-8.0); NEUTROPHILS # 1.7 10^3/uL (1.5-8.5); NEUTROPHILS % 37.8 % (36.0-66.0); PLATELET COUNT, AUTOMATED 215 10^3/uL (150-450); RED BLOOD COUNT 4.17 10^6/uL (4.00-5.40); WHITE BLOOD COUNT 4.5 10^3/uL (4.0-10.0)
[2022-04-12 15:34] LABS: ALBUMIN 3.5 GM/DL (3.2-5.2); ALT/SGPT 21 U/L (12-78); BILIRUBIN,TOTAL 0.4 MG/DL (0.2-1.0); BLOOD UREA NITROGEN 13 MG/DL (7-18); CALCIUM LEVEL 8.6 MG/DL (8.5-10.1); CARBON DIOXIDE LEVEL 26 MEQ/L (21-32); CHLORIDE LEVEL 108 MEQ/L (98-107); CREATININE FOR GFR 0.61 MG/DL (0.55-1.30); GLOMERULAR FILTRATION RATE > 60.0 (>60); GLUCOSE, FASTING 89 MG/DL (70-100); SODIUM LEVEL 140 MEQ/L (136-145)
== END ==
LOC: M PLALAB 10:47
PROVIDERS: ATTEND Student in an Organized Health Care Education/Training Program
DX: Z01.812 Encounter for preprocedural laboratory examination (principal)

== ENCOUNTER → 2022-04-23 | Outpatient (CLI) | payer OTHER | LOC: M LABSMTC 10:42 | PROVIDERS: ATTEND Anesthesiology | DX: Z01.812 Encounter for preprocedural laboratory examination (principal); Z11.52 Encounter for screening for COVID-19 ==

== ENCOUNTER 2022-04-26 09:30 | Observation (INO) | payer OTHER ==
[~2022-04-26] VITALS: Ht 154.9 cm; Wt 82.1 kg
[~2022-04-26 09:30] MED LIST changes: +HEPARIN SOD (PORCINE) 5000UNITS/ML 1ML VIAL/SYRINGE SQ ONE
[2022-04-26] MEDS ORDERED: GENTAMICIN SULF 80MG/2ML VIAL As Ordered ONE (11:14)
[2022-04-26] MEDS ORDERED: BUPIVACAINE HCL 0.25% 10ML VIAL As Ordered ONE ×2 (11:14→12:02)
[2022-04-26] MEDS ORDERED: BUPIVACAINE LIPOSOME/PF 1.3% 20ML VIAL (13.3MG/ML)(EXPAREL) As Ordered ONE (11:15)
[2022-04-26] MEDS ORDERED: dexameTHASONE 4 MG/ML 1ML VIAL (J1100 PER 1MG) As Ordered ONE (11:19)
[2022-04-26] MEDS ORDERED: ROCURONIUM BROMIDE 50 MG/5 ML VIAL As Ordered ONE ×2 (11:19→14:59)
[2022-04-26] MEDS ORDERED: ONDANSETRON 4MG 2ML VIAL As Ordered ONE ×2 (11:19→11:24)
[2022-04-26] MEDS ORDERED: fentaNYL 100 MCG/2 ML INJECTION As Ordered ONE ×2 (11:19→13:37)
[2022-04-26] MEDS ORDERED: MIDAZOLAM INJ 2MG/2ML VIAL (J2250 PER 1MG) As Ordered ONE (11:19)
[2022-04-26] MEDS ORDERED: SUGAMMADEX SODIUM 500 MG/5 ML VIAL (BRIDION) As Ordered ONE (11:19)
[2022-04-26] MEDS ORDERED: LIDOCAINE 2% 100MG/5ML SDV (FOR ANES.) As Ordered ONE (11:19)
[2022-04-26] MEDS ORDERED: LR 1,000 ML IV SCH ×2 (11:35→14:50)
[2022-04-26] MEDS ORDERED: CLINDAMYCIN 900MG/50ML PREMIX BAG As Ordered ONE (11:49)
[2022-04-26] MEDS ORDERED: CLINDAMYCIN 900 MG in IV 1 EA IV ONE ×2 (12:00→18:00)
[2022-04-26] MEDS ORDERED: ACETAMINOPHEN 1000MG 100ML IV BAG As Ordered ONE (14:33)
[2022-04-26] MEDS ORDERED: HYDROMORPHONE HCL 0.5 MG/ 0.5 ML SYRINGE (J1170 PER 1) IV PRN (14:50)
[2022-04-26] MEDS ORDERED: oxyCODONE 5MG TAB PO PRN (14:50)
[2022-04-26] MEDS ORDERED: METOCLOPRAMIDE INJ 10MG/2ML VIAL (J2765 PER 1) IV PRN (14:50)
[2022-04-26] MEDS ORDERED: fentaNYL 100 MCG/2 ML INJECTION IV PRN (14:50)
[2022-04-26] MEDS ORDERED: ONDANSETRON 4MG 2ML VIAL IV PRN ×2 (14:50→15:40)
[2022-04-26] MEDS ORDERED: SCOPOLAMINE 1MG TRANSDERMAL PATCH As Ordered ONE (15:16)
[2022-04-26] MEDS ORDERED: ACETAMINOPHEN TAB 650MG DOSE (2X325MG) PO PRN (15:40)
[2022-04-26 16:30] VITALS: BP 111/65
[2022-04-26] MEDS: LR 1,000 ML IV SCH (16:47)
[2022-04-26 17:00] VITALS: BP 113/66
[2022-04-26 18:00] VITALS: BP 111/61
[2022-04-26 19:44] VITALS: BP 109/62
[2022-04-26] MEDS: traMADol 50 MG TAB PO PRN (20:17)
[2022-04-26] MEDS: PERCOCET 5MG/325MG TAB PO PRN (21:05)
[2022-04-26 22:02] VITALS: BP 93/51
[2022-04-27 01:14] VITALS: BP 101/61
[2022-04-27] MEDS: traMADol 50 MG TAB PO PRN (01:28)
[2022-04-27] MEDS: PERCOCET 5MG/325MG TAB PO PRN ×2 (04:42→09:54)
[2022-04-27] MEDS: LR 1,000 ML IV SCH (05:37)
[2022-04-27 06:17] VITALS: BP 103/58
[2022-04-27] MEDS ORDERED: TRAM50TA2 PO (09:30)
[2022-04-27 10:00] VITALS: BP 107/63
[2022-04-27] MEDS ORDERED: OXYC1TAB23 PO (10:43)
== END 2022-04-27 13:20 | disposition home or self-care (01) ==
LOC: M SDC 09:30 → M MS5PR 09:31
PROVIDERS: ADMIT Plastic Surgery Surgery of the Hand; ATTEND Plastic Surgery Surgery of the Hand
DX: M54.07 Panniculitis affecting regions of neck and back, lumbosacral region (principal); K42.9 Umbilical hernia without obstruction or gangrene; E05.00 Thyrotoxicosis with diffuse goiter without thyrotoxic crisis or storm; F41.9 Anxiety disorder, unspecified; F32.A Depression, unspecified; Z91.030 Bee allergy status; Z91.018 Allergy to other foods
CPT/HCPCS: 15830; 15847; 49585; 81025; 88300; 96365; 96375; 96376; C9290; J0131; J1100; J1170; J1580; J1644; J2250; J2405; J3010

== ENCOUNTER 2022-12-31 21:02 | Emergency (ER) | payer OTHER ==
[~2022-12-31] VITALS: Ht 154.9 cm; Wt 102.8 kg
[2022-12-31 21:02] VITALS: BP 127/74; TEMP 98.6; O2SAT 100
[~2022-12-31 21:02] MED LIST changes: -HEPARIN SOD (PORCINE) 5000UNITS/ML 1ML VIAL/SYRINGE SQ ONE; +OXYC1TAB23 PO; +TRAM50TA2 PO
== END 2022-12-31 23:50 | disposition left against medical advice (07) ==
LOC: M ED 21:02
DX: Z53.21 Procedure and treatment not carried out due to patient leaving prior to being seen by health care provider (principal)

== ENCOUNTER → 2023-05-15 | Outpatient (REF) | payer OTHER | LOC: M LAB REF 12:02 | PROVIDERS: ATTEND Physician Assistant Medical | DX: B34.9 Viral infection, unspecified (principal) ==

== ENCOUNTER → 2023-09-06 | Outpatient (REF) | payer OTHER | LOC: M LAB REF 11:41 | PROVIDERS: ATTEND Physician Assistant | DX: B34.9 Viral infection, unspecified (principal) ==

== ENCOUNTER 2023-11-03 16:02 | Emergency (ER) | payer OTHER ==
[~2023-11-03] VITALS: Ht 154.9 cm; Wt 109.5 kg
[2023-11-03] MEDS ORDERED: ISOVUE-370 76% 100ML VIAL As Ordered ONE (17:21)
[2023-11-03] MEDS: ACETAMINOPHEN 500 MG TAB PO ONE (17:29)
[2023-11-03 17:31] LABS: BASO % 0.3 % (0.0-1.0); EOS # 0.1 10^3/uL (0.0-0.5); EOS % 0.4 % (0.0-3.0); HEMATOCRIT 39.6 % (36.0-47.0); HEMOGLOBIN 13.3 g/dl (12.0-15.5); LYMPH # 2.3 10^3/uL (1.5-5.0); LYMPH % 17.4 % (24.0-44.0); MEAN CORPUSCULAR HEMOGLOBIN 29.6 pg (27.0-33.0); MEAN CORPUSCULAR HGB CONC 33.6 g/dl (32.0-36.5); MONO # 0.7 10^3/uL (0.0-0.8); MONO % 5.4 % (2.0-8.0); NEUTROPHILS # 10.2 10^3/uL (1.5-8.5); NEUTROPHILS % 76.1 % (36.0-66.0); PLATELET COUNT, AUTOMATED 292 10^3/uL (150-450); WHITE BLOOD COUNT 13.4 10^3/uL (4.0-10.0)
[2023-11-03] MEDS ORDERED: IBUP-1022 PO (18:55)
[2023-11-03 19:02] VITALS: BP 132/80; TEMP 99.5; O2SAT 98
== END 2023-11-03 19:04 | disposition home or self-care (01) ==
LOC: M ED 16:02
DX: S13.4XXA Sprain of ligaments of cervical spine, initial encounter (principal); S30.0XXA Contusion of lower back and pelvis, initial encounter; S20.224A Contusion of middle back wall of thorax, initial encounter; S10.0XXA Contusion of throat, initial encounter; Y04.8XXA Assault by other bodily force, initial encounter; Y92.9 Unspecified place or not applicable; Y93.9 Activity, unspecified; Y99.0 Civilian activity done for income or pay; Z87.311 Personal history of (healed) other pathological fracture; E03.9 Hypothyroidism, unspecified; F41.9 Anxiety disorder, unspecified; Z88.0 Allergy status to penicillin; Z88.1 Allergy status to other antibiotic agents; Z91.030 Bee allergy status; Z91.018 Allergy to other foods
CPT/HCPCS: 70450; 70486; 70491; 72125; 72128; 72131; 80047; 84702; 85025; 99284; Q9967

== ENCOUNTER → 2023-12-18 | Outpatient (REF) | payer OTHER ==
[~2023-12-18] MED LIST changes: +ONDA-282 PO; -ONDA4TAB6 PO
[2023-12-18 17:12] LABS: BASO % 0.4 % (0.0-1.0); EOS # 0.1 10^3/uL (0.0-0.5); EOS % 1.3 % (0.0-3.0); HEMATOCRIT 38.5 % (36.0-47.0); HEMOGLOBIN 12.3 g/dl (12.0-15.5); LYMPH # 1.8 10^3/uL (1.5-5.0); LYMPH % 33.2 % (24.0-44.0); MEAN CORPUSCULAR HEMOGLOBIN 29.7 pg (27.0-33.0); MEAN CORPUSCULAR HGB CONC 31.9 g/dl (32.0-36.5); MONO # 0.5 10^3/uL (0.0-0.8); MONO % 8.9 % (2.0-8.0); PLATELET COUNT, AUTOMATED 215 10^3/uL (150-450); RED BLOOD COUNT 4.14 10^6/uL (4.00-5.40); WHITE BLOOD COUNT 5.3 10^3/uL (4.0-10.0)
[2023-12-18 17:41] LABS: ALBUMIN 3.4 G/DL (3.2-5.2); ALKALINE PHOSPHATASE 94 U/L (46-116); ALT/SGPT 14 U/L (7.0-40); AST/SGOT 11 U/L (<34); BILIRUBIN,TOTAL 0.4 MG/DL (0.3-1.2); BLOOD UREA NITROGEN 9 MG/DL (9-23); CALCIUM LEVEL 9.1 MG/DL (8.5-10.1); CARBON DIOXIDE LEVEL 28 MMOL/L (20-31); CHLORIDE LEVEL 109 MMOL/L (98-107); CHOLESTEROL LEVEL 130 MG/DL (<200); CHOLESTEROL RISK RATIO 3.02 (<5); CREATININE FOR GFR 0.72 MG/DL (0.55-1.30); GLOMERULAR FILTRATION RATE > 60.0 (>60); GLUCOSE, FASTING 79 MG/DL (60-100); LDL CHOLESTEROL 74.2 MG/DL (<100); POTASSIUM SERUM 4.9 MMOL/L (3.5-5.1); SODIUM LEVEL 140 MMOL/L (136-145); TOTAL PROTEIN 6.4 G/DL (5.7-8.2); TRIGLYCERIDES LEVEL 64 MG/DL (<150)
[2023-12-18 17:42] LABS: THYROID STIMULATING HORMONE 2.974 uIU/ML (0.55-4.78)
[2023-12-18 17:43] LABS: FREE T4 0.92 NG/DL (0.89-1.76)
[2023-12-18 17:44] LABS: HEMOGLOBIN A1c 4.9 % (4.0-6.0)
== END ==
LOC: M SFHCLERA 09:29
PROVIDERS: ATTEND Family Medicine
DX: E06.3 Autoimmune thyroiditis (principal); E66.01 Morbid (severe) obesity due to excess calories

== ENCOUNTER 2024-02-28 19:06 | Emergency (ER) | payer OTHER, SELFPAY ==
[~2024-02-28] VITALS: Ht 154.9 cm; Wt 110.0 kg
[2024-02-28 19:59] LABS: BASO % 0.2 % (0.0-1.0); EOS # 0.1 10^3/uL (0.0-0.5); EOS % 0.5 % (0.0-3.0); HEMATOCRIT 37.5 % (36.0-47.0); HEMOGLOBIN 12.4 g/dl (12.0-15.5); LYMPH # 2.3 10^3/uL (1.5-5.0); LYMPH % 22.4 % (24.0-44.0); MEAN CORPUSCULAR HGB CONC 33.1 g/dl (32.0-36.5); MEAN CORPUSCULAR VOLUME 90.6 fl (80.0-96.0); MONO # 0.7 10^3/uL (0.0-0.8); MONO % 6.7 % (2.0-8.0); NEUTROPHILS # 7.2 10^3/uL (1.5-8.5); NEUTROPHILS % 69.6 % (36.0-66.0); PLATELET COUNT, AUTOMATED 238 10^3/uL (150-450); RED BLOOD COUNT 4.14 10^6/uL (4.00-5.40); WHITE BLOOD COUNT 10.4 10^3/uL (4.0-10.0)
[2024-02-28 20:31] LABS: LIPASE 30 U/L (12-53)
[2024-02-28 20:33] LABS: ALBUMIN 3.6 G/DL (3.2-5.2); ALKALINE PHOSPHATASE 101 U/L (46-116); ALT/SGPT 22 U/L (7.0-40); AST/SGOT 11 U/L (<34); BILIRUBIN,DIRECT 0.4 MG/DL (<0.4); BILIRUBIN,TOTAL 0.4 MG/DL (0.3-1.2); BLOOD UREA NITROGEN 12 MG/DL (9-23); CALCIUM LEVEL 9.8 MG/DL (8.5-10.1); CARBON DIOXIDE LEVEL 27 MMOL/L (20-31); CHLORIDE LEVEL 106 MMOL/L (98-107); CREATININE FOR GFR 0.71 MG/DL (0.55-1.30); GLOMERULAR FILTRATION RATE > 60.0 (>60); GLUCOSE, FASTING 74 MG/DL (60-100); POTASSIUM SERUM 4.1 MMOL/L (3.5-5.1); SODIUM LEVEL 138 MMOL/L (136-145); TOTAL PROTEIN 7.1 G/DL (5.7-8.2)
[2024-02-28 20:46] LABS: HCG, SERUM QUANTITATIVE 84859.8 MIU/ML (<4.2)
[2024-02-28 22:02] VITALS: BP 137/84; TEMP 98.6; O2SAT 100
== END 2024-02-28 22:03 | disposition home or self-care (01) ==
LOC: M ED 19:06
DX: O26.851 Spotting complicating pregnancy, first trimester (principal); Z3A.01 Less than 8 weeks gestation of pregnancy; Z88.0 Allergy status to penicillin; Z91.030 Bee allergy status; Z91.018 Allergy to other foods

== ENCOUNTER → 2024-03-18 | Outpatient (CLI) | payer OTHER ==
[2024-03-18 17:58] LABS: HEMATOCRIT 38.8 % (36.0-47.0); HEMOGLOBIN 12.7 g/dl (12.0-15.5); MEAN CORPUSCULAR HEMOGLOBIN 29.6 pg (27.0-33.0); MEAN CORPUSCULAR HGB CONC 32.7 g/dl (32.0-36.5); MEAN CORPUSCULAR VOLUME 90.4 fl (80.0-96.0); PLATELET COUNT, AUTOMATED 214 10^3/uL (150-450); RED BLOOD COUNT 4.29 10^6/uL (4.00-5.40); WHITE BLOOD COUNT 8.9 10^3/uL (4.0-10.0)
[2024-03-18 18:07] LABS: HEMOGLOBIN A1c 4.7 % (4.0-6.0)
[2024-03-18 18:36] LABS: HEPATITIS B SURFACE ANTIGEN NEGATIVE (NEGATIVE)
[2024-03-18 18:47] LABS: HIV 1&2 SCREEN NEGATIVE (NEGATIVE)
[2024-03-18 18:57] LABS: HEPATITIS C VIRUS ABY INDEX 0.02 INDEX (<0.8)
[2024-03-18 21:22] LABS: GC DNA AMPLIFICATION NEGATIVE (NEGATIVE)
== END ==
LOC: M PLALAB 15:47
PROVIDERS: ATTEND Advanced Practice Midwife
DX: O99.211 Obesity complicating pregnancy, first trimester (principal)

== ENCOUNTER → 2024-03-23 | Outpatient (CLI) | payer OTHER | LOC: M PLALAB 14:18 | PROVIDERS: ATTEND Advanced Practice Midwife | DX: O99.211 Obesity complicating pregnancy, first trimester (principal); Z3A.00 Weeks of gestation of pregnancy not specified ==

== ENCOUNTER → 2024-04-24 | Outpatient (CLI) | payer OTHER | LOC: M PLALAB 11:51 | PROVIDERS: ATTEND Nurse Practitioner Family | DX: O99.212 Obesity complicating pregnancy, second trimester (principal); E66.9 Obesity, unspecified; Z3A.00 Weeks of gestation of pregnancy not specified ==

== ENCOUNTER → 2024-04-29 | Outpatient (REF) | payer OTHER | LOC: M LAB REF 12:26 | PROVIDERS: ATTEND Physician Assistant | DX: J02.9 Acute pharyngitis, unspecified (principal) ==

== ENCOUNTER → 2024-05-29 | Outpatient (CLI) | payer OTHER | LOC: M WHC 08:37 | PROVIDERS: ATTEND Nurse Practitioner Family | DX: O99.212 Obesity complicating pregnancy, second trimester (principal); Z3A.20 20 weeks gestation of pregnancy ==

== ENCOUNTER 2024-06-28 09:34 | Outpatient (CLI) | payer OTHER ==
[~2024-06-28] VITALS: Ht 154.9 cm; Wt 111.1 kg
[2024-06-28] MEDS ORDERED: OMEP10CASR PO (09:50)
[2024-06-28 09:57] VITALS: BP 109/67
[2024-06-28] MEDS ORDERED: HOME MED LIST COMPLETE! XX SCH (10:00)
== END 2024-06-28 10:34 | disposition home or self-care (01) ==
LOC: M LDO 09:34
PROVIDERS: ATTEND Specialist
DX: O26.892 Other specified pregnancy related conditions, second trimester (principal); O99.212 Obesity complicating pregnancy, second trimester; R60.9 Edema, unspecified; E66.01 Morbid (severe) obesity due to excess calories; Z3A.25 25 weeks gestation of pregnancy; Z88.1 Allergy status to other antibiotic agents; Z91.030 Bee allergy status; Z91.018 Allergy to other foods
CPT/HCPCS: 59025; G0463

== ENCOUNTER → 2024-07-02 | Outpatient (REF) | payer OTHER ==
[~2024-07-02] MED LIST changes: +OMEP10CASR PO
== END ==
LOC: M LAB REF 12:52
PROVIDERS: ATTEND Physician Assistant Medical
DX: B34.9 Viral infection, unspecified (principal)

== ENCOUNTER → 2024-07-07 | Outpatient (CLI) | payer OTHER ==
[2024-07-07 14:10] LABS: HEMATOCRIT 33.4 % (36.0-47.0); MEAN CORPUSCULAR HEMOGLOBIN 30.6 pg (27.0-33.0); MEAN CORPUSCULAR HGB CONC 32.9 g/dl (32.0-36.5); MEAN CORPUSCULAR VOLUME 92.8 fl (80.0-96.0); PLATELET COUNT, AUTOMATED 250 10^3/uL (150-450); WHITE BLOOD COUNT 9.6 10^3/uL (4.0-10.0)
[2024-07-07 14:20] LABS: GLUCOSE CHALLENGE TEST 1 HOUR 87 MG/DL (LESS THAN 140)
[2024-07-07 14:55] LABS: HIV 1&2 SCREEN NEGATIVE (NEGATIVE)
[2024-07-07 15:03] LABS: HEPATITIS C VIRUS ABY INDEX < 0.02 INDEX (<0.8)
[2024-07-07 15:27] LABS: GC DNA AMPLIFICATION NEGATIVE (NEGATIVE)
== END ==
LOC: M PLALAB 10:46
PROVIDERS: ATTEND Nurse Practitioner Family
DX: Z34.82 Encounter for supervision of other normal pregnancy, second trimester (principal)

== ENCOUNTER → 2024-07-22 | Outpatient (REF) | payer OTHER | LOC: M PLALAB 16:22 | PROVIDERS: ATTEND Obstetrics & Gynecology | DX: N76.1 Subacute and chronic vaginitis (principal) ==

== ENCOUNTER 2024-07-26 18:18 | Emergency (ER) | payer OTHER ==
[2024-07-26] MEDS ORDERED: FLUCONAZOLE 50MG TABLET PO ONE (20:10)
== END 2024-07-26 18:28 | disposition admitted as inpatient to this hospital (09) ==
LOC: M ED 18:18
DX: Z53.21 Procedure and treatment not carried out due to patient leaving prior to being seen by health care provider (principal)

== ENCOUNTER 2024-07-26 18:23 | Outpatient (CLI) | payer OTHER ==
[~2024-07-26] VITALS: Ht 154.9 cm; Wt 107.7 kg
[2024-07-26 18:39] VITALS: BP 101/53
[2024-07-26 19:35] VITALS: BP 102/66
[2024-07-26 20:17] LABS: KETONE, URINE AUTO RFX 2+ mg/dL (NEGATIVE); LEUKOCYTE ESTERASE UR AUTO RFX NEGATIVE (NEGATIVE); MUCUS, URINE RFX LARGE (NEGATIVE); NITRITE, URINE AUTO RFX NEGATIVE (NEGATIVE); RBC, URINE AUTO RFX 0 /HPF (0-3); SQUAM EPITHELIAL CELL UR AURFX 1 /HPF (0-6); WBC, URINE AUTO RFX 1 /HPF (0-3)
[2024-07-26] MEDS: FLUCONAZOLE 50MG TABLET PO SCH (21:15)
[2024-07-26 21:26] LABS: Trichomonas vaginalis (AMP) NOT DETECTED (NEGATIVE)
[2024-07-26 23:25] LABS: GC DNA AMPLIFICATION NEGATIVE (NEGATIVE)
[2024-07-27] MEDS ORDERED: FLUCONAZOLE 50MG TABLET PO SCH (09:00)
== END 2024-07-26 21:20 | disposition home or self-care (01) ==
LOC: M LDO 18:23
PROVIDERS: ATTEND Obstetrics & Gynecology
DX: O26.893 Other specified pregnancy related conditions, third trimester (principal); O32.1XX0 Maternal care for breech presentation, not applicable or unspecified; O23.43 Unspecified infection of urinary tract in pregnancy, third trimester; O99.213 Obesity complicating pregnancy, third trimester; R25.2 Cramp and spasm; B37.9 Candidiasis, unspecified; E66.9 Obesity, unspecified; Z3A.29 29 weeks gestation of pregnancy
CPT/HCPCS: 59025; 76815; 81001; 87661; 87810; 87850; G0463

== ENCOUNTER → 2024-09-01 | Outpatient (REF) | payer OTHER | LOC: M LAB REF 12:41 | PROVIDERS: ATTEND Physician Assistant Medical | DX: B34.9 Viral infection, unspecified (principal) ==

== ENCOUNTER → 2024-09-07 | Outpatient (CLI) | payer OTHER | LOC: M WHC 07:00 | PROVIDERS: ATTEND Advanced Practice Midwife | DX: O26.13 Low weight gain in pregnancy, third trimester (principal); Z3A.35 35 weeks gestation of pregnancy ==

== ENCOUNTER → 2024-09-17 | Outpatient (CLI) | payer OTHER ==
[2024-09-17 16:19] LABS: THYROID STIMULATING HORMONE 1.592 uIU/ML (0.55-4.78)
[2024-09-17 16:20] LABS: FREE T4 1.03 NG/DL (0.89-1.76)
[2024-09-17 16:44] LABS: HIV 1&2 SCREEN NEGATIVE (NEGATIVE)
== END ==
LOC: M PLALAB 12:24
PROVIDERS: ATTEND Advanced Practice Midwife
DX: O99.283 Endocrine, nutritional and metabolic diseases complicating pregnancy, third trimester (principal); Z3A.00 Weeks of gestation of pregnancy not specified

== ENCOUNTER → 2024-09-17 | Outpatient (REF) | payer OTHER | LOC: M PLALAB 11:38 | PROVIDERS: ATTEND Advanced Practice Midwife | DX: O99.283 Endocrine, nutritional and metabolic diseases complicating pregnancy, third trimester (principal) ==

== ENCOUNTER 2024-10-10 09:09 | Emergency (ER) | payer OTHER ==
[~2024-10-10] VITALS: Ht 154.9 cm; Wt 105.6 kg
[2024-10-10 10:12] LABS: BASO % 0.2 % (0.0-1.0); EOS # 0.2 10^3/uL (0.0-0.5); EOS % 2.6 % (0.0-3.0); HEMATOCRIT 29.9 % (36.0-47.0); HEMOGLOBIN 9.5 g/dl (12.0-15.5); LYMPH # 1.4 10^3/uL (1.5-5.0); LYMPH % 22.9 % (24.0-44.0); MEAN CORPUSCULAR HEMOGLOBIN 28.5 pg (27.0-33.0); MEAN CORPUSCULAR HGB CONC 31.8 g/dl (32.0-36.5); MEAN CORPUSCULAR VOLUME 89.8 fl (80.0-96.0); MONO # 0.5 10^3/uL (0.0-0.8); MONO % 8.1 % (2.0-8.0); NEUTROPHILS % 65.2 % (36.0-66.0); PLATELET COUNT, AUTOMATED 214 10^3/uL (150-450); RED BLOOD COUNT 3.33 10^6/uL (4.00-5.40); WHITE BLOOD COUNT 6.1 10^3/uL (4.0-10.0)
[2024-10-10 10:35] LABS: BLOOD UREA NITROGEN 11 MG/DL (9-23); CARBON DIOXIDE LEVEL 27 MMOL/L (20-31); CHLORIDE LEVEL 110 MMOL/L (98-107); GLOMERULAR FILTRATION RATE > 90.0 (>60); GLUCOSE, FASTING 76 MG/DL (60-100); POTASSIUM SERUM 4.4 MMOL/L (3.5-5.1); SODIUM LEVEL 144 MMOL/L (136-145)
[2024-10-10] MEDS ORDERED: ISOVUE-370 76% 100ML VIAL As Ordered ONE (12:13)
[2024-10-10] MEDS ORDERED: CEPH500C PO (14:03)
[2024-10-10 14:32] VITALS: BP 123/60; TEMP 98.8; O2SAT 100
== END 2024-10-10 14:39 | disposition home or self-care (01) ==
LOC: M ED 09:09
DX: N61.0 Mastitis without abscess (principal); B34.1 Enterovirus infection, unspecified; B34.8 Other viral infections of unspecified site; F41.9 Anxiety disorder, unspecified; Z88.0 Allergy status to penicillin; Z88.1 Allergy status to other antibiotic agents; Z91.030 Bee allergy status; Z91.018 Allergy to other foods
CPT/HCPCS: 71045; 71275; 80048; 83880; 85025; 85379; 87486; 87581; 87633; 87798; 93005; 99284; Q9967

== ENCOUNTER 2024-12-25 06:52 | Day surgery (SDC) | payer OTHER ==
[~2024-12-25] VITALS: Ht 154.9 cm; Wt 101.2 kg
[~2024-12-25 06:52] MED LIST changes: +CEPH500C PO
[2024-12-25] MEDS ORDERED: LR 1,000 ML IV SCH (07:05)
[2024-12-25 07:18] LABS: PLATELET COUNT, AUTOMATED 262 10^3/uL (150-450)
[2024-12-25] MEDS ORDERED: HYDROmorphone HCL 2 MG/ML 1 ML VIAL As Ordered ONE (08:09)
[2024-12-25] MEDS ORDERED: MIDAZOLAM INJ 2 MG/2 ML VIAL As Ordered ONE (08:09)
[2024-12-25] MEDS ORDERED: dexAMETHasone 4 MG/ML 1 ML VIAL As Ordered ONE (08:11)
[2024-12-25] MEDS ORDERED: KETOROLAC 30 MG/ML 1 ML VIAL As Ordered ONE (08:11)
[2024-12-25] MEDS ORDERED: ONDANSETRON 4MG 2ML VIAL As Ordered ONE (08:11)
[2024-12-25] MEDS ORDERED: ACETAMINOPHEN 1000MG/100ML IV BAG As Ordered ONE (08:12)
[2024-12-25] MEDS: SCOPOLAMINE 1MG TRANSDERMAL PATCH TOP ONE (08:22)
[2024-12-25] MEDS ORDERED: LIDOCAINE 2% 100 MG/5 ML SDV (FOR ANES.) As Ordered ONE (08:30)
[2024-12-25] MEDS ORDERED: SUGAMMADEX SODIUM 500 MG/5 ML VIAL As Ordered ONE (08:32)
[2024-12-25] MEDS ORDERED: ROCURONIUM BROMIDE 50MG/5ML VIAL As Ordered ONE (08:33)
[2024-12-25] MEDS ORDERED: ONDANSETRON 4MG 2ML VIAL IV PRN (09:50)
[2024-12-25 12:14] VITALS: BP 113/56; TEMP 97.4; O2SAT 98
== END 2024-12-25 12:31 | disposition home or self-care (01) ==
LOC: M SDC 06:52
PROVIDERS: ATTEND Obstetrics & Gynecology
DX: Z30.2 Encounter for sterilization (principal); E06.3 Autoimmune thyroiditis; Z88.1 Allergy status to other antibiotic agents; Z91.018 Allergy to other foods; Z88.0 Allergy status to penicillin; Z88.8 Allergy status to other drugs, medicaments and biological substances; Z91.030 Bee allergy status
CPT/HCPCS: 36415; 58661; 81025; 85027; 86850; 86900; 86901; 88302; J0131; J0665; J1100; J1171; J1885; J2250; J2405; J2765; J3010

== ENCOUNTER → 2025-04-23 | Outpatient (CLI) | payer OTHER ==
[~2025-04-23] MED LIST changes: -IBUP-1022 PO; +IBUP600T42 PO
[2025-04-23 14:30] LABS: BASO # 0.0 10^3/uL (0.0-0.2); BASO % 0.5 % (0.0-1.0); EOS # 0.1 10^3/uL (0.0-0.5); EOS % 1.1 % (0.0-3.0); LYMPH # 2.3 10^3/uL (1.5-5.0); LYMPH % 35.5 % (24.0-44.0); MONO # 0.6 10^3/uL (0.0-0.8); MONO % 9.0 % (2.0-8.0); NEUTROPHILS # 3.5 10^3/uL (1.5-8.5); NEUTROPHILS % 53.3 % (36.0-66.0); PLATELET COUNT, AUTOMATED 290 10^3/uL (150-450)
[2025-04-23 14:34] LABS: ALT/SGPT 15 U/L (7.0-40); AST/SGOT 19 U/L (<34); CALCIUM LEVEL 9.0 MG/DL (8.5-10.1); CARBON DIOXIDE LEVEL 27 MMOL/L (20-31); CHLORIDE LEVEL 106 MMOL/L (98-107); CHOLESTEROL LEVEL 175 MG/DL (<200); CHOLESTEROL RISK RATIO 2.90 (<5); CREATININE FOR GFR 0.72 MG/DL (0.55-1.30); GLOMERULAR FILTRATION RATE > 90.0 (>60); LDL CHOLESTEROL 102.8 MG/DL (<100); NON-HDL-C 114.8 MG/DL; POTASSIUM SERUM 5.1 MMOL/L (3.5-5.1); SODIUM LEVEL 142 MMOL/L (136-145); TRIGLYCERIDES LEVEL 60 MG/DL (<150)
[2025-04-23 14:57] LABS: ESTIMATED AVERAGE GLUCOSE 103.0 MG/DL (60-110)
== END ==
LOC: M PLALAB 09:12
PROVIDERS: ATTEND Internal Medicine
DX: E03.9 Hypothyroidism, unspecified (principal); E66.01 Morbid (severe) obesity due to excess calories; Z68.42 Body mass index [BMI] 45.0-49.9, adult